=== PATIENT | female | born 1930 | race African-American/Black ===

== ENCOUNTER 2017-11-24 18:29 | Emergency (ER) | payer MEDICARE, OTHER ==
[2017-11-24 19:34] LABS: BASO % 1 % (0-3); EOS # 0.1 x10^3/uL (0.0-0.7); EOS % 1 % (0-3); HEMATOCRIT 30.1 % (36.0-47.0); HEMOGLOBIN 10.2 g/dL (12.0-15.5); LYMPH # 1.4 x10^3/uL (1.0-4.8); LYMPH % 25 % (24-48); MEAN CORPUSCULAR HEMOGLOBIN 29 pg (25-35); MEAN CORPUSCULAR HGB CONC 34 g/dL (31-37); MEAN CORPUSCULAR VOLUME 86 fL (79-100); MONO # 0.6 x10^3/uL (0.0-1.1); MONO % 11 % (0-9); NEUT # 3.4 x10^3uL (1.8-7.7); NEUT % 62 % (31-73); PLATELET COUNT 255 x10^3/uL (140-400); RED CELL DISTRIBUTION WIDTH 18.5 % (11.5-14.5); WHITE BLOOD COUNT 5.5 x10^3/uL (4.0-11.0)
--- NOTE | 2017-11-24 19:41 | ED.ADGEN ---
Past History Past Medical History: Diabetes, Hypertension Past Surgical History: No Surgical History Alcohol Use: None Drug Use: None Adult General Chief Complaint Chief Complaint Hypoglycemia HPI HPI Patient is a 77-year-old -[place] female with history of dementia and non insulin-dependent diabetes who presents with mental status changes and reported hypoglycemia. Patient coronary spends weekdays at [facility] in [place], [place] that provides meals, distributes and checks blood sugar.. 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 She was moving all extremities. No seizure activity was witnessed. Blood sugar was checked which was 40. EMS provided D 10 through an IV. Blood sugar improved to about 100. Mental status returned to baseline.. Patient is also on glimepiride and Coreg. Patient alert and oriented to person and situation on ED arrival. Blood sugar rechecked in about 70. No other acute symptoms or complaints. History limited due to the presence of dementia. Additional history per family. [] Review of Systems Review of Systems ROS as per HPI All other systems were reviewed and found to be within normal limits, except as documented in this note. Allergies Allergies Allergies Coded Allergies Type Severity Reaction Last Updated Verified No Known Drug Allergies 11/24/17 No Physical Exam Physical Exam Constitutional: Well developed, well nourished, no acute distress, non-toxic appearance. [] HENT: Normocephalic, atraumatic, bilateral external ears normal, oropharynx moist, no oral exudates, nose normal. [] Eyes: PERRLA, EOMI, conjunctiva normal, no discharge. [] Neck: Normal range of motion, no tenderness, supple, no stridor. [] Cardiovascular:Heart rate regular rhythm, no murmur [] Lungs & Thorax: Bilateral breath sounds clear to auscultation [] Abdomen: Bowel sounds normal, soft, no tenderness, no masses, no pulsatile masses. [] Skin: Warm, dry, no erythema, no rash. [] Back: No tenderness, no CVA tenderness. [] Extremities: Right orthopaedic shoe [] Neurologic: Alert and oriented X 1, normal motor function, normal sensory function, no focal deficits noted. [] Psychologic: Affect, flat. [] Current Patient Data Vital Signs Vital Signs Date Time Temp Pulse Resp B/P (MAP) Pulse Ox O2 Delivery O2 Flow Rate FiO2 11/24/17 19:37 80 18 135/48 (77) 100 Room Air 11/24/17 18:34 98.1 Lab Results Laboratory Tests Test 11/24/17 19:09 White Blood Count 5.5 x10^3/uL (4.0-11.0) Red Blood Count 3.50 x10^6/uL (3.50-5.40) Hemoglobin 10.2 g/dL (12.0-15.5) L Hematocrit 30.1 % (36.0-47.0) L Mean Corpuscular Volume 86 fL (79-100) Mean Corpuscular Hemoglobin 29 pg (25-35) Mean Corpuscular Hemoglobin Concent 34 g/dL (31-37) Red Cell Distribution Width 18.5 % (11.5-14.5) H Platelet Count 255 x10^3/uL (140-400) Neutrophils (%) (Auto) 62 % (31-73) Lymphocytes (%) (Auto) 25 % (24-48) Monocytes (%) (Auto) 11 % (0-9) H Eosinophils (%) (Auto) 1 % (0-3) Basophils (%) (Auto) 1 % (0-3) Neutrophils # (Auto) 3.4 x10^3uL (1.8-7.7) Lymphocytes # (Auto) 1.4 x10^3/uL (1.0-4.8) Monocytes # (Auto) 0.6 x10^3/uL (0.0-1.1) Eosinophils # (Auto) 0.1 x10^3/uL (0.0-0.7) Basophils # (Auto) 0.0 x10^3/uL (0.0-0.2) Sodium Level 142 mmol/L (136-145) Potassium Level 3.7 mmol/L (3.5-5.1) Chloride Level 106 mmol/L (98-107) Carbon Dioxide Level 27 mmol/L (21-32) Anion Gap 9 (6-14) Blood Urea Nitrogen 25 mg/dL (7-20) H Creatinine 1.4 mg/dL (0.6-1.0) H Estimated GFR (Cockcroft-Gault) 43.0 BUN/Creatinine Ratio 18 (6-20) Glucose Level 65 mg/dL (70-99) L Calcium Level 8.6 mg/dL (8.5-10.1) Total Bilirubin 0.2 mg/dL (0.2-1.0) Aspartate Amino Transferase (AST) 21 U/L (15-37) Alanine Aminotransferase (ALT) 19 U/L (14-59) Alkaline Phosphatase 85 U/L (46-116) Total Protein 6.2 g/dL (6.4-8.2) L Albumin 2.5 g/dL (3.4-5.0) L Albumin/Globulin Ratio 0.7 (1.0-1.7) L EKG EKG [] Radiology/Procedures Radiology/Procedures [] Course & Med Decision Making Course & Med Decision Making Pertinent Labs and Imaging studies reviewed. (See chart for details) [Patient needed on D10 given juice and fed while in the emergency department. Blood sugar remains greater than 100. Patient's able to walk with steady gait with minimal assistance with return to baseline mental status and function. Family members instructed to discontinue glimepiride and check daily blood sugars at home and to ensure patient eats routine snacks meals and follows up with a primary care physician for further management.] Final Impression Final Impression [1 altered mental status state-resolved 2. Hypoglycemia] Problems: Dragon Disclaimer Dragon Disclaimer This electronic medical record was generated, in whole or in part, using a voice recognition dictation system. DEREK ALDRICH DO Nov 24, 2017 19:41
[2017-11-24 19:44] LABS: ALBUMIN 2.5 g/dL (3.4-5.0); ALBUMIN/GLOBULIN RATIO 0.7 (1.0-1.7); CALCIUM 8.6 mg/dL (8.5-10.1); CREATININE 1.4 mg/dL (0.6-1.0); POTASSIUM 3.7 mmol/L (3.5-5.1); TOTAL BILIRUBIN 0.2 mg/dL (0.2-1.0); TOTAL PROTEIN 6.2 g/dL (6.4-8.2)
[2017-11-24 20:26] VITALS: BP 136/70
== END 2017-11-24 20:34 | disposition home or self-care (01) ==
LOC: ER 18:29
DX: E11.649 Type 2 diabetes mellitus with hypoglycemia without coma (principal); I10 Essential (primary) hypertension
CPT/HCPCS: 36415; 80053; 82947; 85025; 99284

== ENCOUNTER 2018-01-02 12:44 | Inpatient (IN) | payer MEDICARE, OTHER ==
[~2018-01-02] VITALS: Ht 152.4 cm; Wt 66.5 kg
[2018-01-02 13:09] LABS: BASO # 0.1 x10^3/uL (0.0-0.2); BASO % 1 % (0-3); EOS # 0.1 x10^3/uL (0.0-0.7); EOS % 1 % (0-3); HEMATOCRIT 34.7 % (36.0-47.0); HEMOGLOBIN 11.1 g/dL (12.0-15.5); LYMPH # 1.1 x10^3/uL (1.0-4.8); LYMPH % 16 % (24-48); MEAN CORPUSCULAR HEMOGLOBIN 29 pg (25-35); MEAN CORPUSCULAR HGB CONC 32 g/dL (31-37); MEAN CORPUSCULAR VOLUME 89 fL (79-100); MONO # 0.6 x10^3/uL (0.0-1.1); MONO % 8 % (0-9); NEUT # 5.1 x10^3uL (1.8-7.7); NEUT % 74 % (31-73); PLATELET COUNT 178 x10^3/uL (140-400); RED BLOOD COUNT 3.89 x10^6/uL (3.50-5.40); RED CELL DISTRIBUTION WIDTH 18.4 % (11.5-14.5); WHITE BLOOD COUNT 6.8 x10^3/uL (4.0-11.0)
--- NOTE | 2018-01-02 13:18 | EKG ---
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
[2018-01-02 13:24] LABS: BACTERIA,URINE 0 /HPF (0-FEW); BILIRUBIN,URINE NEG (NEG); CLARITY,URINE HAZY; COLOR,URINE YELLOW; GLUCOSE,URINE 250 mg/dL (NEG); NITRITE,URINE NEG (NEG); SQUAMOUS EPITHELIAL CELL,UR FEW /LPF; UROBILINOGEN,URINE 0.2 mg/dL (0.2 mg/dL); WBC,URINE OCC /HPF (0-4)
[2018-01-02 13:24] LABS: ALBUMIN/GLOBULIN RATIO 0.9 (1.0-1.7); CALCIUM 9.3 mg/dL (8.5-10.1); CREATININE 1.7 mg/dL (0.6-1.0); GFR 34.4; POTASSIUM 4.4 mmol/L (3.5-5.1); TOTAL BILIRUBIN 0.5 mg/dL (0.2-1.0); TOTAL PROTEIN 6.2 g/dL (6.4-8.2)
--- NOTE | 2018-01-02 13:39 | RAD ---
EXAM: CT head without contrast. HISTORY: Altered level of consciousness. TECHNIQUE: Computed tomography of the head was performed without intravenous contrast. COMPARISON: None. FINDINGS: There is no intracranial hemorrhage. There is a chronic infarct in the right occipital lobe. There is moderate to severe chronic small vessel ischemic white matter change elsewhere. The lateral ventricles are moderately enlarged out of proportion to the degree of sulcal enlargement. The visualized paranasal sinuses appear clear. There are changes of bilateral cataract surgery. The temporal bones are unremarkable. The calvarium reveals no suspicious lesions. There are atherosclerotic calcifications of the internal carotid arteries. IMPRESSION: 1. No acute intracranial findings. 2. Chronic right occipital infarct. 3. Prominence of the lateral ventricles is somewhat out of portion to the degree of sulcal enlargement. Correlate clinically to differentiate moderate atrophy from normal pressure hydrocephalus. 4. Moderate to severe chronic small vessel ischemic white matter change. *One or more of the following individualized dose reduction techniques were utilized for this examination: 1. Automated exposure control. 2. Adjustment of the mA and/or kV according to patient size. 3. Use of iterative reconstruction technique.
--- NOTE | 2018-01-02 13:42 | RAD ---
EXAM: Chest one view. HISTORY: Altered level of consciousness. COMPARISON: None. FINDINGS: A frontal view of the chest is obtained. A left-sided pacemaker has its leads in the right atrium and right ventricle. An opacity in the right cardiophrenic angle is consistent with atelectasis or mild infiltrate. There is mild atelectasis in the left base. There is no pneumothorax or pleural effusion. The heart is not enlarged. There are atherosclerotic calcifications of the aorta. IMPRESSION: 1. Right greater than left basilar atelectasis or mild infiltrate.
[2018-01-02] MEDS ORDERED: POLY2500 MC (13:43)
[2018-01-02] MEDS ORDERED: LOSA100T6 PO (13:43)
[2018-01-02] MEDS ORDERED: ASPI325T8 PO (13:44)
[2018-01-02] MEDS ORDERED: CARV40CP PO (13:45)
[2018-01-02] MEDS ORDERED: ERGO500027 PO (13:46)
[2018-01-02] MEDS ORDERED: FURO20TA3 PO (13:47)
[2018-01-02] MEDS ORDERED: GLIM2TAB2 PO (13:52)
[2018-01-02] MEDS: ASPIRIN 81 MG TAB.CHEW PO ONE ×2 (14:10→15:28)
--- NOTE | 2018-01-02 14:13 | PHYS DOC ---
Past History Past Medical History: Dementia, Diabetes, Hypertension Past Surgical History: Pacemaker Smoking: Non-smoker Alcohol Use: None Drug Use: None Adult General Chief Complaint Chief Complaint: ALTERED MENTAL STATUS HPI HPI 87-year-old female patient with history of diabetes and dementia who lives with family members brought in by EMS because of altered mental status. Patient's family state he returned from religious and was on a chair and suddenly she became unresponsive with bending her head over and having shortness of breath and not responding for a short time at 1220 that was about 20 minutes prior to arrival to ER. She was able to talk and did not have focal neuro deficit according to EMS. Review of Systems Review of Systems unable to obtain because of dementia Current Medications Current Medications Current Medications Medications (Trade) Dose Ordered Sig/Clarence Start Time Stop Time Status Last Admin Dose Admin Aspirin (Children'S Aspirin) 324 mg 1X ONCE 01/02/18 14:10 01/02/18 14:11 Allergies Allergies Allergies Coded Allergies Type Severity Reaction Last Updated Verified No Known Drug Allergies 11/24/17 No Physical Exam Physical Exam Constitutional: Well nourished, mild distress, non-toxic appearance. [] HENT: Normocephalic, atraumatic, bilateral external ears normal, oropharynx moist, no oral exudates, nose normal. [] Eyes: PERRLA, EOMI, conjunctiva normal, no discharge. [] Neck: Normal range of motion, no tenderness, supple, no stridor. [] Cardiovascular:Heart rate regular rhythm, no murmur [] Lungs & Thorax: Bilateral breath sounds clear to auscultation [] Abdomen: Bowel sounds normal, soft, no tenderness, no masses, no pulsatile masses. [] Skin: Warm, dry, no erythema, no rash. [] Back: No tenderness, no CVA tenderness. [] Extremities: No tenderness, no cyanosis, no clubbing, ROM intact, bilateral lower extremity 1+ edema] Neurologic: Alert and oriented X 2, normal motor function, normal sensory function, no focal deficits noted. [] Psychologic: Affect normal Current Patient Data Vital Signs Vital Signs Date Time Temp Pulse Resp B/P (MAP) Pulse Ox O2 Delivery O2 Flow Rate FiO2 01/02/18 13:30 78 16 161/91 (114) 100 Room Air 01/02/18 13:01 97.9 Lab Results Laboratory Tests Test 01/02/18 12:49 4/15/18 12:54 01/02/18 12:56 White Blood Count 6.8 x10^3/uL (4.0-11.0) Red Blood Count 3.89 x10^6/uL (3.50-5.40) Hemoglobin 11.1 g/dL (12.0-15.5) L Hematocrit 34.7 % (36.0-47.0) L Mean Corpuscular Volume 89 fL (79-100) Mean Corpuscular Hemoglobin 29 pg (25-35) Mean Corpuscular Hemoglobin Concent 32 g/dL (31-37) Red Cell Distribution Width 18.4 % (11.5-14.5) H Platelet Count 178 x10^3/uL (140-400) Neutrophils (%) (Auto) 74 % (31-73) H Lymphocytes (%) (Auto) 16 % (24-48) L Monocytes (%) (Auto) 8 % (0-9) Eosinophils (%) (Auto) 1 % (0-3) Basophils (%) (Auto) 1 % (0-3) Neutrophils # (Auto) 5.1 x10^3uL (1.8-7.7) Lymphocytes # (Auto) 1.1 x10^3/uL (1.0-4.8) Monocytes # (Auto) 0.6 x10^3/uL (0.0-1.1) Eosinophils # (Auto) 0.1 x10^3/uL (0.0-0.7) Basophils # (Auto) 0.1 x10^3/uL (0.0-0.2) Prothrombin Time 12.6 SEC (9.4-11.4) H Prothrombin Time INR 1.2 (0.9-1.1) H Sodium Level 145 mmol/L (136-145) Potassium Level 4.4 mmol/L (3.5-5.1) Chloride Level 106 mmol/L (98-107) Carbon Dioxide Level 28 mmol/L (21-32) Anion Gap 11 (6-14) Blood Urea Nitrogen 34 mg/dL (7-20) H Creatinine 1.7 mg/dL (0.6-1.0) H Estimated GFR (Cockcroft-Gault) 34.4 BUN/Creatinine Ratio 20 (6-20) Glucose Level 329 mg/dL (70-99) H Lactic Acid Level 3.2 mmol/L (0.4-2.0) H Calcium Level 9.3 mg/dL (8.5-10.1) Total Bilirubin 0.5 mg/dL (0.2-1.0) Aspartate Amino Transferase (AST) 25 U/L (15-37) Alanine Aminotransferase (ALT) 27 U/L (14-59) Alkaline Phosphatase 92 U/L (46-116) Creatine Kinase 91 U/L (26-192) Creatine Kinase MB (Mass) 2.6 ng/mL (0.0-3.6) Creatine Kinase MB Relative Index 2.9 % (0-4) Troponin I Quantitative 0.191 ng/mL (0-0.055) H Total Protein 6.2 g/dL (6.4-8.2) L Albumin 3.0 g/dL (3.4-5.0) L Albumin/Globulin Ratio 0.9 (1.0-1.7) L Urine Collection Type U cath Urine Color Yellow Urine Clarity Hazy Urine pH 6.5 Urine Specific Schuyler 1.020 Urine Protein 100 mg/dl (NEG-TRACE) Urine Glucose (UA) 250 mg/dL (NEG) Urine Ketones (Stick) Neg mg/dL (NEG) Urine Blood Small (NEG) Urine Nitrite Neg (NEG) Urine Bilirubin Neg (NEG) Urine Urobilinogen Dipstick 0.2 mg/dL (0.2 mg/dL) Urine Leukocyte Esterase Neg (NEG) Urine RBC 3-5 /HPF (0-2) Urine WBC Occ /HPF (0-4) Urine Squamous Epithelial Cells Few /LPF Urine Bacteria 0 /HPF (0-FEW) Glucose (Fingerstick) 287 mg/dL (70-99) H EKG EKG EKG interpreted by me. EKG at 1305 showed normal sinus rhythm at rate of 81, abnormal left axis deviation, nonspecific intraventricular block, no acute distress and T-wave abnormalities[] Radiology/Procedures Radiology/Procedures [] [address] [address] IMAGING REPORT Signed PATIENT: ILEANA MERRILL ACCOUNT: [id number] : 1930 LOCATION: ER AGE: 87 SEX: F EXAM STATUS: REG ER ORD. PHYSICIAN: RAINE ROMEO MD REASON: ALOC PROCEDURE: CHEST AP ONLY EXAM: Chest one view. HISTORY: Altered level of consciousness. COMPARISON: None. FINDINGS: A frontal view of the chest is obtained. A left-sided pacemaker has its leads in the right atrium and right ventricle. An opacity in the right cardiophrenic angle is consistent with atelectasis or mild infiltrate. There is mild atelectasis in the left base. There is no pneumothorax or pleural effusion. The heart is not enlarged. There are atherosclerotic calcifications of the aorta. IMPRESSION: 1. Right greater than left basilar atelectasis or mild infiltrate. DICTATED AND SIGNED BY: PILLO BARRETT MD DATE: 01/02/181336 CC: RAINE ROMEO MD; NON,STAFF ~ [place] [address] IMAGING REPORT Signed PATIENT: ILEANA MERRILL ACCOUNT: [id number] : 1930 LOCATION: ER AGE: 87 SEX: F EXAM STATUS: REG ER ORD. PHYSICIAN: RAINE ROMEO MD REASON: ALOC PROCEDURE: CT HEAD WO CONTRAST EXAM: CT head without contrast. HISTORY: Altered level of consciousness. TECHNIQUE: Computed tomography of the head was performed without intravenous contrast. COMPARISON: None. FINDINGS: There is no intracranial hemorrhage. There is a chronic infarct in the right occipital lobe. There is moderate to severe chronic small vessel ischemic white matter change elsewhere. The lateral ventricles are moderately enlarged out of proportion to the degree of sulcal enlargement. The visualized paranasal sinuses appear clear. There are changes of bilateral cataract surgery. The temporal bones are unremarkable. The calvarium reveals no suspicious lesions. There are atherosclerotic calcifications of the internal carotid arteries. IMPRESSION: 1. No acute intracranial findings. 2. Chronic right occipital infarct. 3. Prominence of the lateral ventricles is somewhat out of portion to the degree of sulcal enlargement. Correlate clinically to differentiate moderate atrophy from normal pressure hydrocephalus. 4. Moderate to severe chronic small vessel ischemic white matter change. *One or more of the following individualized dose reduction techniques were utilized for this examination: 1. Automated exposure control. 2. Adjustment of the mA and/or kV according to patient size. 3. Use of iterative reconstruction technique. DICTATED AND SIGNED BY: PILLO BARRETT MD DATE: 01/02/18 1320 CC: RAINE ROMEO MD; NON,STAFF ~ Course & Med Decision Making Course & Med Decision Making Pertinent Labs and Imaging studies reviewed. (See chart for details) Evaluation of patient in ER showed 87-year-old female patient brought in by EMS because of left. Mental status for a short time. Patient had NISS of [address] head. Lactic acid was 3.4 with unremarkable UA and white count. Patient did not have hypotension, fever, tachycardia or leukocytosis. X-ray was questionable for infiltrate. Troponin was very mildly elevated. Patient treated with aspirin and Rocephin. Dr. Santos was informed at 1337 agreed with admitting patient with diagnosis of altered mental status and elevated troponin. Dragon Disclaimer Dragon Disclaimer This electronic medical record was generated, in whole or in part, using a voice recognition dictation system. Departure Departure: Impression: Primary Impression: Altered level of consciousness Additional Impressions: Elevated troponin Elevated lactic acid level Dementia Microscopic hematuria Uncontrolled diabetes mellitus Pneumonia Disposition: 09 ADMITTED INPATIENT (At 1338) Condition: IMPROVED Referrals: NON,STAFF (PCP) Problem Qualifiers RAINE ROMEO MD Jan 02, 2018 14:13
[2018-01-02] MEDS ORDERED: IV NORMAL SALINE 1,000ML 1,000 ML IV ONE (14:15)
[2018-01-02] MEDS ORDERED: cefTRIAXone IV Push 1 GM VIAL. IVP ONE (14:30)
[2018-01-02] MEDS ORDERED: CARVEDILOL 12.5 MG TABLET PO SCH (17:00)
[2018-01-02] MEDS ORDERED: DEXTROSE 50% 25 GM / 50ML DISP.SYRIN. IV PRN (17:15)
--- NOTE | 2018-01-02 19:07 | HP ---
ADMIT DATE: 01/02/2018 HISTORY OF PRESENT ILLNESS: The patient is an 87-year-old female patient with a past medical history significant for diabetes and dementia, who lives with her family, who brought her to the Emergency Room with altered mental status. Her family stated that she has returned from zoroastrianism, was in the chair and suddenly she became unresponsive with bending her head over and having shortness of breath and not responding for a short time for almost about 20 minutes prior to arrival to the Emergency Room; however, by the time she arrived to the Emergency Room, she was able to talk, have no focal neurologic deficit. She was extensively evaluated in the Emergency Room, and her lab work showed that she has impaired kidney function, has lactic acidosis, and her troponin was elevated at 0.191. Her beta natriuretic peptide was 7560, and therefore, the patient was admitted to rule out myocardial infarction. We do 2 more sets of cardiac enzymes, get the Cardiology consult to see her. She continues to be full code, according to her family. PAST MEDICAL HISTORY: Significant for type 2 diabetes mellitus, hypertension, vitamin D deficiency. PAST SURGICAL HISTORY: Significant for permanent pacemaker placement. FAMILY HISTORY: Noncontributory. SOCIAL HISTORY: She lives with her family, does not smoke, drink alcohol or use recreational drugs. ALLERGIES: She has no known drug allergies. MEDICATIONS: She is currently on following medications: Carvedilol 40 mg once a day, losartan potassium 100 mg once a day, aspirin 325 mg once a day, furosemide 20 mg once a day, glimepiride 2 mg daily, ergocalciferol, vitamin D2 at 50,000 international units 1 capsule once a week, polyethylene glycol 17 grams daily. PHYSICAL EXAMINATION: GENERAL: On examining her, she looked well and was clearly in no apparent respiratory distress, slightly pale, but no jaundice or cyanosis. No lymphadenopathy, no thyromegaly. No jugular venous distension. No lower limb edema. VITAL SIGNS: Her heart rate was 76, blood pressure 161/91, temperature was 97.9, respiratory rate was 16 and oxygen saturation was 100% on room air. HEAD, EYES, EARS, NOSE AND THROAT: Showed normocephalic, atraumatic. NECK: Supple. HEART: Showed normal first and second heart sounds. No gallop, rub or murmur. CHEST: Clear to auscultation. No crepitation or rhonchi. ABDOMEN: Distended, soft, nontender. No guarding or rigidity. No organomegaly. All hernial orifices intact. Bowel sounds normal. NEUROLOGIC: She was demented without any obvious lateralizing sign. She is very confused, disoriented, does not give any useful information; however, all her cranial nerves are intact. EXTREMITIES: She moves all extremities without difficulty. DIAGNOSTIC STUDIES: On arrival to the Emergency Room, she has lab work done showed a serum sodium of 145, potassium 4.4, chloride 106, bicarbonate 28, anion gap of 11, BUN 34, creatinine 1.7, estimated GFR was 54 mL per minute. Her glucose was 329, calcium was 9.3. Lactic acid was 3.2. Total bilirubin, AST, ALT, alkaline phosphatase were normal. Her troponin was 0.191. Total protein was 6.2, albumin 3. Her white cell count was 6800, hemoglobin 11, hematocrit 34, MCV 89 and platelet count of 178,000. Prothrombin time was 12.6, INR of 1.2. Urinalysis was essentially unremarkable. The urine was yellow, hazy with a pH of 6.5, specific gravity of 1.020. There is large amount of protein, large amount of glucose, negative for ketones, there is small amount of blood, negative for nitrite and leukocyte esterase, only 3-4 rbc's, occasional wbc's, no bacteria. Her CT scan of the head showed that there is no acute intracranial finding, chronic right occipital infarct. She has prominence of the lateral ventricle, is somewhat out of proportion to the degree of sulcal enlargement with the possibility of either atrophy from normal pressure hydrocephalus, moderate to severe chronic small vessel disease, ischemic white matter changes. PLAN: My plan is to do 2 more sets of cardiac enzyme, check her fasting lipid profile tomorrow. Consult the cardiology team, although given her age and comorbidities, I am not sure if she is a candidate for any intervention. SERGE HORNE MD DR: TAYLOR/ugo JOB#: [id number] / [id number]
[2018-01-02 19:43] VITALS: BP 157/90
[2018-01-02] MEDS: INSULIN ASPART 300 UNITS/3 ML INSULN.PEN SQ SCH (19:54)
[2018-01-02 22:27] VITALS: BP 151/83
[2018-01-03 05:51] VITALS: BP 153/76
[2018-01-03 06:44] LABS: HEMATOCRIT 31.3 % (36.0-47.0); HEMOGLOBIN 10.4 g/dL (12.0-15.5); RED BLOOD COUNT 3.58 x10^6/uL (3.50-5.40); RED CELL DISTRIBUTION WIDTH 18.4 % (11.5-14.5)
[2018-01-03 07:04] LABS: ALBUMIN 2.8 g/dL (3.4-5.0); ALBUMIN/GLOBULIN RATIO 0.8 (1.0-1.7); CALCIUM 9.2 mg/dL (8.5-10.1); CREATININE 1.6 mg/dL (0.6-1.0); GFR 36.9; POTASSIUM 3.7 mmol/L (3.5-5.1); TOTAL BILIRUBIN 0.5 mg/dL (0.2-1.0); TOTAL PROTEIN 6.1 g/dL (6.4-8.2)
[2018-01-03] MEDS: INSULIN ASPART 300 UNITS/3 ML INSULN.PEN SQ SCH ×4 (07:13→20:31)
[2018-01-03] MEDS: FUROSEMIDE 20 MG TABLET PO SCH (08:38)
[2018-01-03] MEDS: POLYETHYLENE GLYCOL 3350 17 GM PACKET. PO SCH (08:38)
[2018-01-03] MEDS: LOSARTAN 50 MG TABLET. PO SCH (08:38)
[2018-01-03] MEDS: ASPIRIN 325 MG TABLET PO SCH (08:39)
[2018-01-03] MEDS: GLIMEPIRIDE 2 MG TABLET PO SCH (08:39)
[2018-01-03] MEDS ORDERED: CARVEDILOL 12.5 MG TABLET PO SCH (09:00)
[2018-01-03 10:10] VITALS: BP 166/92
--- NOTE | 2018-01-03 10:17 | PDOC2 ---
CARDIAC CONSULT DATE OF CONSULT Date Of Consult DATE: 01/03/18 TIME: 10:01 REASON FOR CONSULT Reason for Consult syncope HPI History of Present Illness Ms Campa is an 87 year old female with baseline dementia who was transported to the ED via EMS for a reported syncopal episode. She denies any memory of the episode. She is able to tell me her name but currently states that we are at her grandsons house and the year is 2017. She states that she still goes to orthodox and grocery shopping but is unable to tell me where her grandsons home is located. She denies any lightheadedness, chest discomfort, dyspnea or palpitations. She reports that her legs are frequently swollen. History if obtained from the chart. PAST MEDICAL HISTORY Past Medical History CAD, CHF, systolic EF of 45 status post pacemaker placement, dementia, hypertension, diabetes mellitus and hypothyroidism. 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 Right PT and peroneal occlusion Right mid and distal AT occlusion Collateral reconstitution of flow in the right DP FAMILY HISTORY Family History non contributory due to age SOCIAL HISTORY Social History lives with grandson and his family CURRENT MEDICATIONS Current Medications Current Medications Aspirin (Children'S Aspirin) 324 mg 1X ONCE PO ; Start 01/02/18 at 14:10; Stop 01/02/18 at 14:11; Status DC Ceftriaxone Sodium 1 gm/ Sodium Chloride 50 ml @ 100 mls/hr 1X ONCE IV ; Start 01/02/18 at 14:15; Stop 01/02/18 at 14:44; Status UNV Sodium Chloride 1,000 ml @ 75 mls/hr 1X ONCE IV Last administered on at 15:27; Start 01/02/18 at 14:15; Stop 01/03/18 at 03:34; Status DC Ceftriaxone Sodium (Rocephin) 1 gm 1X ONCE IVP Last administered on 01/02/18at 15:28; Start 01/02/18 at 14:30; Stop 01/02/18 at 14:31; Status DC Aspirin (Brooks Aspirin) 325 mg DAILY PO Last administered on 01/03/18at 08:39; Start 01/03/18 at 09:00 Furosemide (Lasix) 20 mg DAILY PO Last administered on 01/03/18at 08:38; Start 01/03/18 at 09:00 Glimepiride (Amaryl) 2 mg DAILY PO Last administered on 01/03/18at 08:39; Start 01/03/18 at 09:00 Carvedilol (Coreg) 12.5 mg BIDWMEALS PO ; Start 01/02/18 at 17:00; Stop at 17:22; Status DC Vitamin D (Vitamin D3) 50,000 unit WEEKLY PO ; Start 01/04/18 at 09:00 Losartan Potassium (Cozaar) 100 mg DAILY PO Last administered on 01/03/18at 08: 38; Start 01/03/18 at 09:00 Polyethylene Glycol (miraLAX) 17 gm DAILY PO Last administered on 01/03/18at 08: 38; Start 01/03/18 at 09:00 Insulin Aspart (NovoLOG) 0-7 UNITS QIDACHS SQ Last administered on 01/02/18at 19 :54; Start 01/02/18 at 21:00 Dextrose 12.5 gm PRN Q15MIN PRN IV SEE COMMENTS; Start 01/02/18 at 17:15 Carvedilol (Coreg) 12.5 mg DAILY PO ; Start 01/03/18 at 09:00; Status UNV Carvedilol (Coreg) 12.5 mg BIDWMEALS PO ; Start 01/03/18 at 17:00 Active Scripts Active Reported Glimepiride 2 Mg Tablet 1 Tab PO DAILY Furosemide 20 Mg Tablet 1 Tab PO DAILY Coreg Cr (Carvedilol Phosphate) 40 Mg Cpmp.24hr 1 Cap PO DAILY Aspirin 325 Mg Tablet 1 Tab PO DAILY Polyethylene Glycol 3350 2,500 Gm Powder 2,500 Gm MC Losartan Potassium 100 Mg Tablet 100 Mg PO DAILY ALLERGIES Allergies: Coded Allergies: No Known Drug Allergies (Unverified , 11/24/17) ROS Review of Systems unobtainable due to dementia PHYSICAL EXAM General: Alert, Cooperative, No acute distress, Other (oriented to self) HEENT: Atraumatic, EOMI, Mucous membr. moist/pink Lungs: Clear to auscultation, Normal air movement Heart: Regular rate, Normal S1, Normal S2 Abdomen: Normal bowel sounds, Soft, No tenderness Extremities: No cyanosis, Other (2+ bilateral lower extremity edema) Neuro: Normal speech, Strength at 5/5 X4 ext Psych/Mental Status: Mood NL, Other (oriented to self) VITALS Vital Signs Vital Signs Date Time Temp Pulse Resp B/P (MAP) Pulse Ox O2 Delivery O2 Flow Rate FiO2 01/03/18 08:38 88 153/76 01/03/18 05:51 98.1 16 91 Room Air LABS LABS Laboratory Tests Test 01/02/18 12:49 01/02/18 12:54 01/02/18 12:56 01/02/18 16:15 White Blood Count 6.8 x10^3/uL (4.0-11.0) Red Blood Count 3.89 x10^6/uL (3.50-5.40) Hemoglobin 11.1 g/dL (12.0-15.5) Hematocrit 34.7 % (36.0-47.0) Mean Corpuscular Volume 89 fL (79-100) Mean Corpuscular Hemoglobin 29 pg (25-35) Mean Corpuscular Hemoglobin Concent 32 g/dL (31-37) Red Cell Distribution Width 18.4 % (11.5-14.5) Platelet Count 178 x10^3/uL (140-400) Neutrophils (%) (Auto) 74 % (31-73) Lymphocytes (%) (Auto) 16 % (24-48) Monocytes (%) (Auto) 8 % (0-9) Eosinophils (%) (Auto) 1 % (0-3) Basophils (%) (Auto) 1 % (0-3) Neutrophils # (Auto) 5.1 x10^3uL (1.8-7.7) Lymphocytes # (Auto) 1.1 x10^3/uL (1.0-4.8) Monocytes # (Auto) 0.6 x10^3/uL (0.0-1.1) Eosinophils # (Auto) 0.1 x10^3/uL (0.0-0.7) Basophils # (Auto) 0.1 x10^3/uL (0.0-0.2) Prothrombin Time 12.6 SEC (9.4-11.4) Prothromb Time International Ratio 1.2 (0.9-1.1) Sodium Level 145 mmol/L (136-145) Potassium Level 4.4 mmol/L (3.5-5.1) Chloride Level 106 mmol/L (98-107) Carbon Dioxide Level 28 mmol/L (21-32) Anion Gap 11 (6-14) Blood Urea Nitrogen 34 mg/dL (7-20) Creatinine 1.7 mg/dL (0.6-1.0) Estimated GFR (Cockcroft-Gault) 34.4 BUN/Creatinine Ratio 20 (6-20) Glucose Level 329 mg/dL (70-99) Lactic Acid Level 3.2 mmol/L (0.4-2.0) 2.4 mmol/L (0.4-2.0) Calcium Level 9.3 mg/dL (8.5-10.1) Total Bilirubin 0.5 mg/dL (0.2-1.0) Aspartate Amino Transf (AST/SGOT) 25 U/L (15-37) Alanine Aminotransferase (ALT/SGPT) 27 U/L (14-59) Alkaline Phosphatase 92 U/L (46-116) Creatine Kinase 91 U/L (26-192) Creatine Kinase MB (Mass) 2.6 ng/mL (0.0-3.6) Creatine Kinase MB Relative Index 2.9 % (0-4) Troponin I Quantitative 0.191 ng/mL (0-0.055) 0.226 ng/mL (0-0.055) ID-Vfw-K-Type Natriuretic Peptide 7560 pg/mL (0-449) Total Protein 6.2 g/dL (6.4-8.2) Albumin 3.0 g/dL (3.4-5.0) Albumin/Globulin Ratio 0.9 (1.0-1.7) Urine Collection Type U cath Urine Color Yellow Urine Clarity Hazy Urine pH 6.5 Urine Specific [place] 1.020 Urine Protein 100 mg/dl (NEG-TRACE) Urine Glucose (UA) 250 mg/dL (NEG) Urine Ketones (Stick) Neg mg/dL (NEG) Urine Blood Small (NEG) Urine Nitrite Neg (NEG) Urine Bilirubin Neg (NEG) Urine Urobilinogen Dipstick 0.2 mg/dL (0.2 mg/dL) Urine Leukocyte Esterase Neg (NEG) Urine RBC 3-5 /HPF (0-2) Urine WBC Occ /HPF (0-4) Urine Squamous Epithelial Cells Few /LPF Urine Bacteria 0 /HPF (0-FEW) Glucose (Fingerstick) 287 mg/dL (70-99) Test 01/02/18 17:09 01/02/18 19:52 01/02/18 20:30 01/03/18 06:29 Glucose (Fingerstick) 282 mg/dL (70-99) 277 mg/dL (70-99) Troponin I Quantitative 0.228 ng/mL (0-0.055) White Blood Count 5.0 x10^3/uL (4.0-11.0) Red Blood Count 3.58 x10^6/uL (3.50-5.40) Hemoglobin 10.4 g/dL (12.0-15.5) Hematocrit 31.3 % (36.0-47.0) Mean Corpuscular Volume 87 fL (79-100) Mean Corpuscular Hemoglobin 29 pg (25-35) Mean Corpuscular Hemoglobin Concent 33 g/dL (31-37) Red Cell Distribution Width 18.4 % (11.5-14.5) Platelet Count 151 x10^3/uL (140-400) Sodium Level 146 mmol/L (136-145) Potassium Level 3.7 mmol/L (3.5-5.1) Chloride Level 109 mmol/L (98-107) Carbon Dioxide Level 27 mmol/L (21-32) Anion Gap 10 (6-14) Blood Urea Nitrogen 33 mg/dL (7-20) Creatinine 1.6 mg/dL (0.6-1.0) Estimated GFR (Cockcroft-Gault) 36.9 BUN/Creatinine Ratio 21 (6-20) Glucose Level 124 mg/dL (70-99) Calcium Level 9.2 mg/dL (8.5-10.1) Magnesium Level 2.0 mg/dL (1.8-2.4) Total Bilirubin 0.5 mg/dL (0.2-1.0) Aspartate Amino Transf (AST/SGOT) 21 U/L (15-37) Alanine Aminotransferase (ALT/SGPT) 25 U/L (14-59) Alkaline Phosphatase 79 U/L (46-116) Total Protein 6.1 g/dL (6.4-8.2) Albumin 2.8 g/dL (3.4-5.0) Albumin/Globulin Ratio 0.8 (1.0-1.7) Test 01/03/18 07:11 Glucose (Fingerstick) 112 mg/dL (70-99) IMAGES IMAGES CXR - 1. Right greater than left basilar atelectasis or mild infiltrate. CT head - IMPRESSION: 1. No acute intracranial findings. 2. Chronic right occipital infarct. 3. Prominence of the lateral ventricles is somewhat out of portion to the degree of sulcal enlargement. Correlate clinically to differentiate moderate atrophy from normal pressure hydrocephalus. 4. Moderate to severe chronic small vessel ischemic white matter change. EKG EKG V paced ECHOCARDIOGRAM Echocardiogram 06/02/17 Left ventricle systolic function is mildly impaired. The Ejection Fraction is 45%. Transmitral Doppler flow pattern is Grade I-abnormal relaxation pattern. There is moderate concentric left ventricular hypertrophy. The left atrium is mildly dilated. The right atrium size is normal. The aortic valve is mildly sclerotic. The aortic valve is trileaflet. Doppler and Color Flow revealed trace aortic regurgitation. Doppler and Color Flow revealed mild mitral regurgitation. The mitral valve leaflets are mildly thickened. Doppler and Color Flow revealed mild tricuspid regurgitation. The pulmonary artery systolic pressure is estimated at 57 mmHg. There is moderate pulmonary hypertension. The pulmonary valve is not well visualized but appears to open adequately. Doppler and Color Flow revealed mild pulmonic valvular regurgitation. There is no evidence of significant pericardial effusion. ASSESSMENT/PLAN Assessment/Plan 1. Syncope - will attempt to obtain records and have pacemaker interrogated. Check orthostatics. 2. NSTEMI - angina free. continue medical mgmt at this time. 3. Hx chronic systolic hf - appears compensated at this time 4. PAD - recent thrombectomy 5. 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 dementia Recent echo reviewed. Will attempt to have pacemaker interrogated for any possible arrhythmias. Check echo and adjust antihypertensives accordingly. Would recommend medical mgmt considering her age and mental status, at this time. HI SILVERIO BRIDGE WORKER Jan 03, 2018 10:17
[2018-01-03 15:23] VITALS: BP_SYST 148; BP_SYST 165; BP_DIAS 82; BP_DIAS 99
[2018-01-03 15:24] VITALS: BP 156/78
[2018-01-03] MEDS: CARVEDILOL 12.5 MG TABLET PO SCH (17:16)
--- NOTE | 2018-01-03 19:02 | CONS ---
DATE OF CONSULTATION: 01/02/2018 REFERRING PHYSICIAN: Dr. Santos. REASON FOR CONSULTATION: Acute mental status changes. HISTORY OF PRESENT ILLNESS: This is an 87-year-old right-handed, -[place] female who was admitted through Emergency Room approximately 20 minutes after she had a brief loss of consciousness at the [facility] this noon this afternoon. The family members stated that the patient was tired and had a brief unresponsiveness along with shortness of breath. The patient did not recall the event; however, she denies headaches, visual disturbances, nausea, vomiting, chest pain, or palpitations. The patient denies any new onset of weakness or paresthesia. Initial nonenhanced head CT scan revealed no evidence of acute intracranial process, but chronic right occipital infarct and generalized cortical atrophy, raised a question of normal pressure hydrocephalus along with moderate to severe chronic small vessel ischemic changes. PAST MEDICAL HISTORY: Significant for diabetes mellitus type 2, hypertension, vitamin D deficiency, dementia, congestive heart failure, and deep venous thrombosis. PAST SURGICAL HISTORY: Significant for permanent pacemaker placement. SOCIAL HISTORY: The patient is with her son-in-law. She denies smoking, alcohol drinking, or illicit drug use. CURRENT HOME MEDICATIONS: Vitamin D3 50 units weekly, carvedilol 12.5 mg p.o. b.i.d., MiraLax, Cozaar 100 mg p.o. daily, Amaryl 2 mg p.o. daily, furosemide 20 mg daily, aspirin 325 mg p.o. daily, insulin NovoLog 0 to 7 units q.i.d. FAMILY HISTORY: Noncontributory. REVIEW OF SYSTEMS: A 10-point review of system was performed and consistent with generalized fatigue, exertional shortness of breath. PHYSICAL EXAMINATION: GENERAL: Well-developed, well nourished -[place] female, not in acute distress. She weighs 145 pounds. VITAL SIGNS: Blood pressure 157/90, respiratory rate 18, pulse is 81, temperature is 98.3, oxygen saturation 100% on room air. HEENT: Normocephalic, atraumatic, otherwise unremarkable. NECK: Supple. Negative for carotid bruit, lymphadenopathy, thyromegaly, or lymphadenopathy. LUNGS: Clear, but has basilar rales. CARDIOVASCULAR: Regular rhythm, normal S1, S2. There is no S3, S4 or murmur. ABDOMEN: Soft. Bowel sounds positive. Negative for masses, organomegaly or tenderness. EXTREMITIES: Positive for 1-2+ pitting edema. NEUROLOGIC: Mental status: The patient is alert and disoriented to time and place. She can name the President of [employer]. Speech is fluent. There is no language dysfunction. Memory, judgment, and abstract thinking are poor. The patient is fair. The patient denies hallucination or delusion. CRANIAL NERVES: Visual [place]itting[place] consistent with left homonymous hemianopsia. Pupils are equal and reactive to light and accommodation. The extraocular movements are intact. There is no nystagmus. There is no facial, motor or sensory deficit. Hearing to be intact. The palate is elevated symmetrically. Sternocleidomastoid muscles are powerful bilaterally. The patient shrugs her shoulders symmetrically and protrudes her tongue in the midline without fasciculation or atrophy. MOTOR: No focal muscle bulk was seen. The tone is normal. The strength is 4/5 throughout. Sensory examination revealed normal pinprick and light touch senses throughout. Deep tendon reflexes were symmetric and hypoactive without pathology responses. Gait: The stance steady gait, but patient has abnormal tandem gait. LABORATORY DATA: CBC revealed white blood cells of 6800, hemoglobin 11.1, hematocrit 34.7, platelet count 178,000. Chemistry revealed sodium 145, potassium 4.4, chloride 106, CO2 28, BUN 34, creatinine 1.7, glucose 329, calcium 9.3. Troponin level is high at 0.226. BNP is high as 7560. Urinalysis is negative for urinary tract infections, PT is 12.6, INR is 1.2. DIAGNOSTIC DATA: Head CT scan as mentioned above in history of present illness and consistent with chronic right occipital infarct along with chronic small vessel ischemic changes and cortical atrophy with ventriculomegaly consistent with possible underlying normal pressure hydrocephalus. A chest x-ray revealed basilar atelectasis or mild infiltrate, more prominent on the right side. IMPRESSION: 1. Mental status changes, presented with possible brief presyncopal attack, rule out cardiac arrhythmia. 2. Elevated troponin level, rule out coronary artery disease. 3. Elevated ANP and BNP probably due to underlying mild congestive heart failure. 4. Multiple medical problems include dementia, vitamin D deficiency, hypertension, diabetes mellitus, status post permanent pacemaker placement, and chronic kidney disease/failure. RECOMMENDATIONS: 1. Continue with the current management initiated by Dr. Santos. 2. I agree with cardiology consult and rule out coronary artery disease to have another two sets of cardiac enzymes. 3. Physical therapy evaluation for her gait. 4. Normal pressure hydrocephalus. 5. Considering her age. The patient is not a candidate for possible underlying normal pressure hydrocephalus. M Aydin BRUNS MD DR: JASEN/ugo JOB#: [id number] / [id number]
[2018-01-03 19:39] VITALS: BP 163/90
[2018-01-03 23:15] VITALS: BP 158/89
--- NOTE | 2018-01-03 23:37 | PN ---
DATE: 01/03/2018 SUBJECTIVE: The patient denies any new medical or neurological complaints. She denies chest pain, shortness of breath or palpitation, dysarthria or dysphagia. OBJECTIVE: GENERAL: Well-developed, well-nourished -[place] female, not in acute distress. VITAL SIGNS: Blood pressure 153/76, respiratory rate 16, pulse is 88, temperature 98.1, not in acute distress. HEENT: Normocephalic, atraumatic, otherwise unremarkable. NECK: Supple. Negative for carotid bruit, lymphadenopathy or thyromegaly. LUNGS: Clear to A and P except for fine rales at the bases. ABDOMEN: Soft. Bowel sounds positive. EXTREMITIES: Positive for pitting edema. NEUROLOGIC: The patient is alert and disoriented to time and place. Speech is fluent. There is no language dysfunction. Memory, judgment and abstract thinkings are fair. The patient denies hallucination or delusion. Cranial nerves are grossly intact. No focal motor or sensory deficit. Deep tendon reflexes were symmetric and hypoactive with absent Achilles responses. Gait and the stance is steady, but the patient has abnormal tandem gait. LABORATORY DATA: CBC revealed white blood cells of 5000, hemoglobin 10.4, hematocrit 31.3, platelet count of 151,000. Chemistry revealed sodium of 146, potassium 3.7, chloride 109, CO2 of 27, BUN 33, creatinine 1.6, glucose is 124, calcium 9.2. IMPRESSION: 1. Brief loss of consciousness, rule out syncope versus non-convulsive seizures /cardiac arrhythmia. 2. Elevated troponin level with normal cardiac enzymes. 3. Multiple medical problems include dementia, diabetes mellitus and hypertension. RECOMMENDATIONS: 1. Cardiology following. 2. Physical evaluation and therapy. 3. Continue with current management initiated by Dr. Santos. M Aydin BURNS MD DR: JASEN/ugo JOB#: [id number] / [id number]
--- NOTE | 2018-01-04 01:09 | PN ---
DATE: 01/03/2018 SUBJECTIVE: The patient is sitting comfortably in her chair in no apparent distress. She is awake, alert, definitely confused. She was evaluated by the Cardiology team and their plan is to interrogate her pacemaker to make sure that there are no arrhythmias that might be the cause of her syncope; however, there are no plans for any invasive ischemic workup. PHYSICAL EXAMINATION: GENERAL: When I examined her this morning, she looked well and was clearly in no apparent respiratory distress, slightly pale, but no jaundice, cyanosis or thyromegaly. No jugular venous distension. No lower limb edema. VITAL SIGNS: Her heart rate was 84, blood pressure was 166/92, temperature was 98.6, respiratory rate 20 and oxygen saturation was 96%. HEAD, EYES, EARS, NOSE AND THROAT: Normocephalic, atraumatic. NECK: Supple. HEART: Showed normal first and second heart sounds. No gallop, rub or murmur. CHEST: Clear to auscultation. No crepitation or rhonchi. ABDOMEN: Distended, soft, nontender. NEUROLOGIC: She is demented, but without any obvious lateralizing sign. All her cranial nerves are intact. She moves extremities without difficulty. She ambulates with assistance. Her intake over the last 24 hours was 900, output was 530. LABORATORY DATA: As of this morning showed a white cell count of 5000, hemoglobin 10, hematocrit 30, MCV 87 and platelet count of 151,000. Her serum sodium is 146, potassium 3.7, chloride 109, bicarbonate 27, anion gap of 10, BUN 33, creatinine 1.6. Estimated GFR was 57 mL per minute. Her glucose 124, calcium was 9.2, magnesium 2. Total bilirubin, AST, ALT, alkaline phosphatase were normal. Total protein was 6.1, albumin was 2.8. She has 3 sets of cardiac enzymes showed that the troponin is trending upward. The last one was 0.228. ASSESSMENT AND PLAN: The patient was seen in consultation by the Cardiology team and basically the plan is to obtain the records and have pacemaker interrogated. As far as her non-ST segment elevation myocardial infarction, medical management will continue. She has chronic systolic congestive heart failure, appears to be well-compensated, peripheral arterial disease status post thrombectomy, hypertension, chronic kidney disease and dementia. No invasive ischemic workup was recommended given her age and her comorbidity. SERGE HORNE MD DR: Bhargavi JOB#: [id number] / [id number]
[2018-01-04 06:08] VITALS: BP 168/83
[2018-01-04 07:20] LABS: CALCIUM 9.2 mg/dL (8.5-10.1); CREATININE 1.5 mg/dL (0.6-1.0); GFR 39.7; POTASSIUM 3.7 mmol/L (3.5-5.1)
[2018-01-04] MEDS: INSULIN ASPART 300 UNITS/3 ML INSULN.PEN SQ SCH ×4 (07:30→21:00)
[2018-01-04] MEDS: CARVEDILOL 12.5 MG TABLET PO SCH ×2 (08:23→18:00)
[2018-01-04] MEDS: GLIMEPIRIDE 2 MG TABLET PO SCH (08:23)
[2018-01-04] MEDS: ASPIRIN 325 MG TABLET PO SCH (08:24)
[2018-01-04] MEDS: LOSARTAN 50 MG TABLET. PO SCH (08:24)
[2018-01-04] MEDS: FUROSEMIDE 20 MG TABLET PO SCH (08:24)
[2018-01-04] MEDS: POLYETHYLENE GLYCOL 3350 17 GM PACKET. PO SCH (08:25)
--- NOTE | 2018-01-04 08:46 | PDOC ---
PROGRESS NOTES Diagnosis Problem Problems Medical Problems: (1) Altered level of consciousness Status: Acute (2) Dementia Status: Acute (3) Elevated lactic acid level Status: Acute (4) Elevated troponin Status: Acute (5) Microscopic hematuria Status: Acute (6) Pneumonia Status: Acute (7) Uncontrolled diabetes mellitus Status: Acute Assessment Problems Medical Problems: (1) Altered level of consciousness Status: Acute (2) Dementia Status: Acute (3) Elevated lactic acid level Status: Acute (4) Elevated troponin Status: Acute (5) Microscopic hematuria Status: Acute (6) Pneumonia Status: Acute (7) Uncontrolled diabetes mellitus Status: Acute 1. Syncope - no significant arrhythmias on tele, no orthostasis. awaiting information on Pacemaker. 2. NSTEMI - angina free. continue medical mgmt at this time. 3. Hx chronic systolic hf - continues to be compensated at this time 4. PAD - recent thrombectomy, stable 5. 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 dementia Problems: Subjective no new complaints, no chest pain, dyspnea or palpitations Objective Vital Signs Date Time Temp Pulse Resp B/P (MAP) Pulse Ox O2 Delivery O2 Flow Rate FiO2 01/04/18 08:24 71 168/83 01/04/18 06:08 20 98 01/03/18 19:45 Room Air 01/03/18 19:39 98.3 Intake and Output 01/04/18 07:00 Intake Total 1040 ml Balance 1040 ml Intake Oral 1040 ml # Voids 6 # Bowel Movements 1 Abdomen: Normal bowel sounds, Soft Heart: Regular rate, Normal S1, Normal S2 Extremities: No cyanosis, Normal pulses General: Alert, Cooperative Lungs: Clear to auscultation Review of Relevant I have reviewed the following items holger (where applicable) has been applied. Labs Laboratory Tests Test 01/02/18 12:49 01/02/18 12:54 01/02/18 12:56 01/02/18 16:15 White Blood Count 6.8 x10^3/uL (4.0-11.0) Red Blood Count 3.89 x10^6/uL (3.50-5.40) Hemoglobin 11.1 g/dL (12.0-15.5) Hematocrit 34.7 % (36.0-47.0) Mean Corpuscular Volume 89 fL (79-100) Mean Corpuscular Hemoglobin 29 pg (25-35) Mean Corpuscular Hemoglobin Concent 32 g/dL (31-37) Red Cell Distribution Width 18.4 % (11.5-14.5) Platelet Count 178 x10^3/uL (140-400) Neutrophils (%) (Auto) 74 % (31-73) Lymphocytes (%) (Auto) 16 % (24-48) Monocytes (%) (Auto) 8 % (0-9) Eosinophils (%) (Auto) 1 % (0-3) Basophils (%) (Auto) 1 % (0-3) Neutrophils # (Auto) 5.1 x10^3uL (1.8-7.7) Lymphocytes # (Auto) 1.1 x10^3/uL (1.0-4.8) Monocytes # (Auto) 0.6 x10^3/uL (0.0-1.1) Eosinophils # (Auto) 0.1 x10^3/uL (0.0-0.7) Basophils # (Auto) 0.1 x10^3/uL (0.0-0.2) Prothrombin Time 12.6 SEC (9.4-11.4) Prothromb Time International Ratio 1.2 (0.9-1.1) Sodium Level 145 mmol/L (136-145) Potassium Level 4.4 mmol/L (3.5-5.1) Chloride Level 106 mmol/L (98-107) Carbon Dioxide Level 28 mmol/L (21-32) Anion Gap 11 (6-14) Blood Urea Nitrogen 34 mg/dL (7-20) Creatinine 1.7 mg/dL (0.6-1.0) Estimated GFR (Cockcroft-Gault) 34.4 BUN/Creatinine Ratio 20 (6-20) Glucose Level 329 mg/dL (70-99) Lactic Acid Level 3.2 mmol/L (0.4-2.0) 2.4 mmol/L (0.4-2.0) Calcium Level 9.3 mg/dL (8.5-10.1) Total Bilirubin 0.5 mg/dL (0.2-1.0) Aspartate Amino Transf (AST/SGOT) 25 U/L (15-37) Alanine Aminotransferase (ALT/SGPT) 27 U/L (14-59) Alkaline Phosphatase 92 U/L (46-116) Creatine Kinase 91 U/L (26-192) Creatine Kinase MB (Mass) 2.6 ng/mL (0.0-3.6) Creatine Kinase MB Relative Index 2.9 % (0-4) Troponin I Quantitative 0.191 ng/mL (0-0.055) 0.226 ng/mL (0-0.055) PZ-Ngu-U-Type Natriuretic Peptide 7560 pg/mL (0-449) Total Protein 6.2 g/dL (6.4-8.2) Albumin 3.0 g/dL (3.4-5.0) Albumin/Globulin Ratio 0.9 (1.0-1.7) Urine Collection Type U cath Urine Color Yellow Urine Clarity Hazy Urine pH 6.5 Urine Specific [place] 1.020 Urine Protein 100 mg/dl (NEG-TRACE) Urine Glucose (UA) 250 mg/dL (NEG) Urine Ketones (Stick) Neg mg/dL (NEG) Urine Blood Small (NEG) Urine Nitrite Neg (NEG) Urine Bilirubin Neg (NEG) Urine Urobilinogen Dipstick 0.2 mg/dL (0.2 mg/dL) Urine Leukocyte Esterase Neg (NEG) Urine RBC 3-5 /HPF (0-2) Urine WBC Occ /HPF (0-4) Urine Squamous Epithelial Cells Few /LPF Urine Bacteria 0 /HPF (0-FEW) Glucose (Fingerstick) 287 mg/dL (70-99) Triglycerides Level 63 mg/dL (0-150) Cholesterol Level 193 mg/dL (0-200) LDL Cholesterol, Calculated 94 mg/dL (0-100) VLDL Cholesterol, Calculated 12 mg/dL (0-40) Non-HDL Cholesterol Calculated 106 mg/dL (0-129) HDL Cholesterol 87 mg/dL (40-60) Cholesterol/HDL Ratio 2.0 Test 01/02/18 17:09 01/02/18 19:52 01/02/18 20:30 01/03/18 06:29 Glucose (Fingerstick) 282 mg/dL (70-99) 277 mg/dL (70-99) Troponin I Quantitative 0.228 ng/mL (0-0.055) White Blood Count 5.0 x10^3/uL (4.0-11.0) Red Blood Count 3.58 x10^6/uL (3.50-5.40) Hemoglobin 10.4 g/dL (12.0-15.5) Hematocrit 31.3 % (36.0-47.0) Mean Corpuscular Volume 87 fL (79-100) Mean Corpuscular Hemoglobin 29 pg (25-35) Mean Corpuscular Hemoglobin Concent 33 g/dL (31-37) Red Cell Distribution Width 18.4 % (11.5-14.5) Platelet Count 151 x10^3/uL (140-400) Sodium Level 146 mmol/L (136-145) Potassium Level 3.7 mmol/L (3.5-5.1) Chloride Level 109 mmol/L (98-107) Carbon Dioxide Level 27 mmol/L (21-32) Anion Gap 10 (6-14) Blood Urea Nitrogen 33 mg/dL (7-20) Creatinine 1.6 mg/dL (0.6-1.0) Estimated GFR (Cockcroft-Gault) 36.9 BUN/Creatinine Ratio 21 (6-20) Glucose Level 124 mg/dL (70-99) Calcium Level 9.2 mg/dL (8.5-10.1) Magnesium Level 2.0 mg/dL (1.8-2.4) Total Bilirubin 0.5 mg/dL (0.2-1.0) Aspartate Amino Transf (AST/SGOT) 21 U/L (15-37) Alanine Aminotransferase (ALT/SGPT) 25 U/L (14-59) Alkaline Phosphatase 79 U/L (46-116) Total Protein 6.1 g/dL (6.4-8.2) Albumin 2.8 g/dL (3.4-5.0) Albumin/Globulin Ratio 0.8 (1.0-1.7) Test 01/03/18 07:11 01/03/18 11:20 01/03/18 16:05 01/03/18 19:53 Glucose (Fingerstick) 112 mg/dL (70-99) 192 mg/dL (70-99) 216 mg/dL (70-99) 162 mg/dL (70-99) Test 01/04/18 06:49 01/04/18 07:29 Sodium Level 145 mmol/L (136-145) Potassium Level 3.7 mmol/L (3.5-5.1) Chloride Level 108 mmol/L (98-107) Carbon Dioxide Level 27 mmol/L (21-32) Anion Gap 10 (6-14) Blood Urea Nitrogen 33 mg/dL (7-20) Creatinine 1.5 mg/dL (0.6-1.0) Estimated GFR (Cockcroft-Gault) 39.7 Glucose Level 105 mg/dL (70-99) Calcium Level 9.2 mg/dL (8.5-10.1) Glucose (Fingerstick) 98 mg/dL (70-99) Microbiology 01/02/18 Blood Culture - Preliminary, Resulted NO GROWTH AFTER 1 DAY Medications Current Medications Aspirin (Children'S Aspirin) 324 mg 1X ONCE PO ; Start 01/02/18 at 14:10; Stop 01/02/18 at 14:11; Status DC Ceftriaxone Sodium 1 gm/ Sodium Chloride 50 ml @ 100 mls/hr 1X ONCE IV ; Start 01/02/18 at 14:15; Stop 01/02/18 at 14:44; Status UNV Sodium Chloride 1,000 ml @ 75 mls/hr 1X ONCE IV Last administered on at 15:27; Start 01/02/18 at 14:15; Stop 01/03/18 at 03:34; Status DC Ceftriaxone Sodium (Rocephin) 1 gm 1X ONCE IVP Last administered on 01/02/18at 15:28; Start 01/02/18 at 14:30; Stop 01/02/18 at 14:31; Status DC Aspirin (Brooks Aspirin) 325 mg DAILY PO Last administered on 01/04/18at 08:24; Start 01/03/18 at 09:00 Furosemide (Lasix) 20 mg DAILY PO Last administered on 01/04/18at 08:24; Start 01/03/18 at 09:00 Glimepiride (Amaryl) 2 mg DAILY PO Last administered on 01/04/18at 08:23; Start 01/03/18 at 09:00 Carvedilol (Coreg) 12.5 mg BIDWMEALS PO ; Start 01/02/18 at 17:00; Stop at 17:22; Status DC Vitamin D (Vitamin D3) 50,000 unit WEEKLY PO Last administered on 01/04/18at 08: 25; Start 01/04/18 at 09:00 Losartan Potassium (Cozaar) 100 mg DAILY PO Last administered on 01/04/18at 08: 24; Start 01/03/18 at 09:00 Polyethylene Glycol (miraLAX) 17 gm DAILY PO Last administered on 01/04/18at 08: 25; Start 01/03/18 at 09:00 Insulin Aspart (NovoLOG) 0-7 UNITS QIDACHS SQ Last administered on 01/03/18at 17 :19; Start 01/02/18 at 21:00 Dextrose 12.5 gm PRN Q15MIN PRN IV SEE COMMENTS; Start 01/02/18 at 17:15 Carvedilol (Coreg) 12.5 mg DAILY PO ; Start 01/03/18 at 09:00; Status UNV Carvedilol (Coreg) 12.5 mg BIDWMEALS PO Last administered on 01/04/18at 08:23; Start 01/03/18 at 17:00 Active Scripts Active Reported Glimepiride 2 Mg Tablet 1 Tab PO DAILY Furosemide 20 Mg Tablet 1 Tab PO DAILY Coreg Cr (Carvedilol Phosphate) 40 Mg Cpmp.24hr 1 Cap PO DAILY Aspirin 325 Mg Tablet 1 Tab PO DAILY Polyethylene Glycol 3350 2,500 Gm Powder 2,500 Gm MC Losartan Potassium 100 Mg Tablet 100 Mg PO DAILY Vitals/I & O Vital Sign - Last 24 Hours 01/03/18 01/03/18 01/03/18 01/03/18 10:10 15:23 15:23 15:24 Temp 98.6 97.7 Pulse 84 75 85 88 Resp 20 20 B/P (MAP) 166/92 (116) 148/82 (104) 165/99 (121) 156/78 (104) Pulse Ox 96 93 O2 Delivery Room Air Room Air 01/03/18 01/03/18 01/03/18 01/03/18 17:16 19:39 19:45 23:15 Temp 98.3 Pulse 88 76 65 Resp 18 20 B/P (MAP) 156/78 163/90 (114) 158/89 (112) Pulse Ox 98 99 O2 Delivery Room Air Room Air 01/04/18 01/04/18 01/04/18 06:08 08:23 08:24 Pulse 71 71 71 Resp 20 B/P (MAP) 168/83 (111) 168/83 168/83 Pulse Ox 98 Intake and Output 01/03/18 01/03/18 01/04/18 15:00 23:00 07:00 Intake Total 600 ml 320 ml 120 ml Balance 600 ml 320 ml 120 ml HI [employer] Jan 04, 2018 08:46
[2018-01-04] MEDS ORDERED: CHOLECALCIFEROL (VITAMIN D3) 50,000 UNIT CAPSULE PO SCH (09:00)
[2018-01-04 11:14] VITALS: BP 151/88
[2018-01-04 16:00] VITALS: BP 146/62
[2018-01-04 19:05] VITALS: BP 108/68
[2018-01-05 00:05] VITALS: BP 155/83
--- NOTE | 2018-01-05 00:24 | PN ---
DATE: 01/04/2018 SUBJECTIVE: The patient is sitting comfortably in her chair in no apparent respiratory distress. She denied any complaint. Nursing staff did not voice any concern, particularly she has no further syncopal episode. We finally managed to find out that her pacemaker is [employer]onic DDDR. She apparently has had her pacemaker placed in [place], but Dr. Prince was following her and he interrogated the pacemaker on 03/31/2017. PHYSICAL EXAMINATION: GENERAL: When I examined her today, she looked well and was clearly in no apparent respiratory distress, pale, but no jaundice, cyanosis, or thyromegaly. No jugular venous distension. No limb edema. VITAL SIGNS: Her heart rate was 74, blood pressure 151/88, temperature was 98.2, respiratory rate 20, and oxygen saturation was 95%. HEAD, EYES, EARS, NOSE AND THROAT: Normocephalic, atraumatic. NECK: Supple. HEART: Showed normal first and second heart sounds. No gallop, rub or murmur. CHEST: Clear to auscultation. No crepitation or rhonchi. ABDOMEN: Distended, soft, nontender. NEUROLOGIC: She is demented without any obvious lateralizing sign. All cranial nerves intact. She moves extremities without difficulty. She walks with a walker. Her intake over the last 24 hours was 900, output was 530. LABORATORY DATA: Her lab work this morning showed a white cell count 5000, hemoglobin 10, hematocrit 31, MCV 87 and a platelet count of 151,000. Her chemistry showed a serum sodium of 145, potassium 3.7, chloride 108, bicarbonate 27, anion gap of 10, BUN 33, creatinine 1.5, estimated GFR was 105 mL per minute. Her calcium was 9.2. ASSESSMENT: Syncopal episode versus cardiac arrhythmia, brief loss of consciousness, non-ST segment elevation, chronic systolic congestive heart failure seems to be well compensated, hypertension, chronic kidney disease and dementia. PLAN: To await the interrogation of her pacemaker and if there is no evidence of arrhythmias, the patient can be discharged to be followed by her primary care physician. She apparently goes to [email or web address], the number there is [phone]. Rene is the manager document there. His number is [phone] and her pacemaker is Medtronic DDDR ____. SERGE HORNE MD DR: Bhargavi JOB#: [id number] / [id number]
[2018-01-05 05:46] VITALS: BP 157/88
[2018-01-05] MEDS: INSULIN ASPART 300 UNITS/3 ML INSULN.PEN SQ SCH ×3 (07:30→17:23)
[2018-01-05] MEDS: POLYETHYLENE GLYCOL 3350 17 GM PACKET. PO SCH (08:43)
[2018-01-05] MEDS: GLIMEPIRIDE 2 MG TABLET PO SCH (08:44)
[2018-01-05] MEDS: CARVEDILOL 12.5 MG TABLET PO SCH ×2 (08:44→17:20)
[2018-01-05] MEDS: FUROSEMIDE 20 MG TABLET PO SCH (08:44)
[2018-01-05] MEDS: LOSARTAN 50 MG TABLET. PO SCH (08:45)
[2018-01-05] MEDS: ASPIRIN 325 MG TABLET PO SCH (08:45)
[2018-01-05 10:45] VITALS: BP 150/83
[2018-01-05 14:53] VITALS: BP 165/89
--- NOTE | 2018-01-05 16:14 | DS ---
DATE OF DISCHARGE: 01/05/2018 HOSPITAL COURSE: The patient is an 87-year-old -Indian female patient, who was seem to be syncopal episode. The patient, herself is demented, does not really give any useful information. She was extensively investigated and was basically found to have non-ST segment elevation myocardial infarction. We did interrogate her pacemaker and apparently no arrhythmias detected. The patient remained hemodynamically stable. She has had no further syncopal episodes while in the hospital and decision was made to discharge her home. PHYSICAL EXAMINATION: GENERAL: When I examined her this afternoon, she looked well. VITAL SIGNS: Her heart rate was 71, blood pressure was 165/89, temperature was 98.1, respiratory rate was 18 and oxygen saturation was 94%. HEAD, EYES, EARS, NOSE AND THROAT: Showed she is normocephalic, atraumatic. NECK: Supple. HEART: Showed normal first and second heart sounds. No gallop, rub or murmur. CHEST: Clear to auscultation. No crepitation or rhonchi. ABDOMEN: Distended, soft, nontender. NEUROLOGIC: She is awake, alert, confused, but without any lateralizing sign. All her cranial nerves intact. She moves extremities without difficulty. She ambulates with a walker. Her intake over the last 24 hours was 1040. No output was recorded. LABORATORY DATA: As of this morning showed serum sodium of 145, potassium 3.7, chloride 108, bicarbonate 27, anion gap of 10, BUN 33, creatinine 1.5, estimated GFR was 40 mL per minute. Her glucose 105, calcium was 9.2. DISCHARGE MEDICATIONS: She was discharged home to continue on following medications: Aspirin 325 mg once a day, carvedilol for Coreg CR 40 mg once a day, vitamin D2 50,000 units once a week, furosemide 20 mg once a day, glimepiride 2 mg daily, losartan potassium 100 mg once a day, polyethylene glycol 17 grams daily for constipation. FINAL DISCHARGE DIAGNOSES: 1. Syncope. No significant arrhythmias detected on telemetry. No orthostatic hypotension and the pacemaker interrogation revealed no evidence of arrhythmias. 2. Non-ST segment elevation myocardial infarction. However, the patient is angina free. No ischemic workup was recommended by the Cardiology team, given her age and comorbidities. 3. Chronic systolic congestive heart failure seemed to be well compensated. Peripheral arterial disease with recent thrombectomy. 4. Hypertension. 5. Chronic kidney disease. 6. Dementia. SERGE HORNE MD DR: TAYLOR/ugo JOB#: [id number] / [id number]
[2018-01-05 17:20] VITALS: BP 165/89
--- NOTE | 2018-01-06 08:05 | PN ---
DATE: 01/04/2018 SUBJECTIVE: The patient denies any new medical or neurological complaints. She denies headaches, visual disturbances, nausea, vomiting, chest pain, shortness of breath or palpitation. The patient stated, "I don't have any complaints and I'm healthy. OBJECTIVE: GENERAL: Well-developed, well-nourished -[place]ib[place] female, not in acute distress. VITAL SIGNS: Blood pressure 168/83, respiratory rate is 20, pulse is 71 and regular, temperature is 98.1 and oxygen saturation 98% on room air. HEENT: Normocephalic, atraumatic, otherwise unremarkable. NECK: Supple, negative for carotid bruit, lymphadenopathy or thyromegaly. LUNGS: Clear to A and P. CARDIOVASCULAR: Regular rate and rhythm, normal S1, S2. ABDOMEN: Soft. Bowel sounds positive. There is no palpable mass or organomegaly or tenderness. EXTREMITIES: Negative for cyanosis, clubbing, pitting edema. NEUROLOGICAL EXAM: Mental Status: The patient is alert, but disoriented to time. She is oriented to place. She knows she is in [facility]. There is no language dysfunction. Memory, judgment and abstract thinking are fair. The patient denies hallucination or delusion. Cranial nerves are grossly intact. No focal motor or sensory deficit. Deep tendon reflexes were symmetric and hypoactive with absent Achilles responses. Gait: The stance is steady, but the patient has abnormal tandem gait. LABORATORY DATA: CBC revealed white blood cells of 5000, hemoglobin 10, hematocrit 31, platelet count 151,000. Chemistry revealed sodium 145, potassium 3.7, chloride 108, CO2 of 27, BUN 33, creatinine 1.5, calcium 9.2. IMPRESSION: 1. Possible syncopal attacks versus cardiac arrhythmia, status post pacemaker placement; however, the pacemaker placement was integrated by her algologist in 03/2007. 2. Multiple medical problems that include dementia, diabetes mellitus and hypertension. 3. Compensated chronic congestive heart failure, hypertension and chronic kidney disease. RECOMMENDATIONS: 1. Continue with current management as initiated by Dr. Santos. 2. Physical therapy evaluation. 3. Cardiology is following up. M Ayidn BURNS MD DR: JASEN/ugo JOB#: [id number] / [id number]
--- NOTE | 2018-01-06 08:14 | PN ---
DATE: 01/05/2018 REFERRING PHYSICIAN: Dr. Cj Santos SUBJECTIVE: The patient denies any new medical or neurological complaints. OBJECTIVE: GENERAL: Well-developed, well-nourished -Malag[place] female, not in acute distress. VITAL SIGNS: Blood pressure 165/89, respiratory rate 18, pulse is 71, oxygen saturation 94% and temperature 98.1. HEENT: Normocephalic, atraumatic, otherwise unremarkable. NECK: Supple. Negative for carotid bruit, lymphadenopathy or thyromegaly. LUNGS: Clear to A and P. CARDIOVASCULAR: Regular rhythm, normal S1, S2. There is no S3, S4, murmur. ABDOMEN: Soft. Bowel sounds positive. EXTREMITIES: Negative for cyanosis, clubbing or pitting edema. NEUROLOGIC: The patient is alert to herself and place. She is disoriented to time. Speech is fluent. There is no language dysfunction. Memory, judgment, and abstract thinking are fair. The patient denies hallucination or delusion. Cranial nerves grossly intact. No focal motor or sensory deficit. Deep tendon reflexes were symmetric and hypoactive. The stance is steady. The patient uses a walker for ambulation. LABORATORY DATA: Chemistry revealed sodium 145, potassium 3.7, chloride 108, CO2 is 27, BUN 33, creatinine 1.5, glucose 105, calcium 9.2. IMPRESSION: 1. Syncopal attack resulted in a brief loss of consciousness, rule out cardiac arrhythmia. 2. Status post pacemaker placement; however, the patient has no orthostatic hypotension. Integration of the pacemaker revealed no evidence of cardiac arrhythmia. 3. Multiple medical problems that include hypertension, chronic compensated congestive heart failure, chronic kidney disease and dementia. RECOMMENDATIONS: We will continue with current management. The patient is neurologically stable. The patient needs physical therapy. M Aydin BURNS MD DR: JASEN/ugo JOB#: [id number] / [id number]
== END 2018-01-05 17:54 | disposition home or self-care (01) | DRG 280 ==
LOC: ER 12:44 → 1 SOUTH 15:36
PROVIDERS: ADMIT Internal Medicine; ATTEND Internal Medicine
PROC: 4B02XSZ Measurement of Cardiac Pacemaker, External Approach (ICD-10-PCS; principal; 2018-01-02)
DX: I21.4 Non-ST elevation (NSTEMI) myocardial infarction (principal); J18.9 Pneumonia, unspecified organism; E11.22 Type 2 diabetes mellitus with diabetic chronic kidney disease; E11.51 Type 2 diabetes mellitus with diabetic peripheral angiopathy without gangrene; I13.0 Hypertensive heart and chronic kidney disease with heart failure and stage 1 through stage 4 chronic kidney disease, or unspecified chronic kidney disease; E87.2 Acidosis; I50.22 Chronic systolic (congestive) heart failure; E11.65 Type 2 diabetes mellitus with hyperglycemia; J98.11 Atelectasis; N18.4 Chronic kidney disease, stage 4 (severe); R55 Syncope and collapse; K59.00 Constipation, unspecified; E03.9 Hypothyroidism, unspecified; E55.9 Vitamin D deficiency, unspecified; F03.90 Unspecified dementia, unspecified severity, without behavioral disturbance, psychotic disturbance, mood disturbance, and anxiety; I25.10 Atherosclerotic heart disease of native coronary artery without angina pectoris; R31.29 Other microscopic hematuria; Z79.4 Long term (current) use of insulin; Z79.82 Long term (current) use of aspirin; Z79.899 Other long term (current) drug therapy; Z95.0 Presence of cardiac pacemaker
CPT/HCPCS: 36415; 70450; 71045; 80048; 80053; 80061; 81001; 82553; 82947; 83605; 83735; 83880; 84484; 85025; 85027; 85610; 87040; 93005; 96374; J0696; J1815; 97110; 97535; 99285-25; J7030

== ENCOUNTER 2018-01-17 08:57 | Inpatient (IN) | payer OTHER ==
[~2018-01-17] VITALS: Ht 152.4 cm; Wt 64.4 kg
[~2018-01-17 08:57] MED LIST: ASPI325T8 PO; CARV40CP PO; ERGO500027 PO; FURO20TA3 PO; GLIM2TAB2 PO; LOSA100T6 PO; POLY2500 MC
[2018-01-17 09:40] LABS: BASO % 0 % (0-3); EOS % 0 % (0-3); HEMATOCRIT 34.5 % (36.0-47.0); HEMOGLOBIN 11.2 g/dL (12.0-15.5); LYMPH # 0.7 x10^3/uL (1.0-4.8); LYMPH % 9 % (24-48); MEAN CORPUSCULAR HEMOGLOBIN 29 pg (25-35); MEAN CORPUSCULAR HGB CONC 32 g/dL (31-37); MEAN CORPUSCULAR VOLUME 88 fL (79-100); MONO # 0.8 x10^3/uL (0.0-1.1); MONO % 10 % (0-9); NEUT # 6.7 x10^3uL (1.8-7.7); NEUT % 81 % (31-73); PLATELET COUNT 153 x10^3/uL (140-400); RED BLOOD COUNT 3.93 x10^6/uL (3.50-5.40); RED CELL DISTRIBUTION WIDTH 18.5 % (11.5-14.5); WHITE BLOOD COUNT 8.3 x10^3/uL (4.0-11.0)
[2018-01-17 09:50] LABS: CALCIUM 8.8 mg/dL (8.5-10.1); CREATININE 2.5 mg/dL (0.6-1.0); MAGNESIUM 2.1 mg/dL (1.8-2.4); POTASSIUM 4.2 mmol/L (3.5-5.1)
[2018-01-17] MEDS ORDERED: LIDOCAINE 2% VISCOUS 15 ML SOLUTION. ONE (10:05)
--- NOTE | 2018-01-17 10:10 | RAD ---
CHEST AP ONLY History: Shortness of air, diabetes, unresponsive Comparison: 01/02/18 Findings: Single view of the chest is submitted. There is right base infiltrate. Heart size is stable. There is atherosclerotic calcification aortic arch. There is left electronic cardiac device. There is no pneumothorax. Impression: 1. There is right base infiltrate. Electronically signed by: En Branch MD (01/17/2018 10:06 AM) [id number]
--- NOTE | 2018-01-17 10:16 | RAD ---
CT HEAD WO CONTRAST History: Altered mental status, unresponsive, diabetes Comparison: None. Technique: Noncontrast CT imaging was performed of the head. Exposure: One or more of the following individualized dose reduction techniques were utilized for this examination: 1. Automated exposure control 2. Adjustment of the mA and/or kV according to patient size 3. Use of iterative reconstruction technique. Findings: There is again lateral and third ventriculomegaly although there is generalized supratentorial atrophy. There is again multifocal moderate to severe ill-defined low-density of the supratentorial parenchyma bilaterally. There is again encephalomalacia extending to the cortical surface of the right occipital lobe. Within the area of encephalomalacia, there is a subtle focus of relative increased density up to about 0.4 cm in size overall unchanged in size. This is not associated with significant mass effect. There is no new midline shift or intra-axial mass effect. Mastoid air cells are aerated. There is patchy [id number] ethmoid air cell and mild sphenoid sinus mucosal thickening. There is atherosclerotic calcification carotid siphons bilaterally. Impression: 1. 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 2. There is again supratentorial atrophy. 3. There is again multifocal ill-defined low-density of the supratentorial parenchyma probably due to chronic microvascular ischemic disease. Electronically signed by: En Branch MD (01/17/2018 10:13 AM) [id number]
[2018-01-17] MEDS ORDERED: FUROSEMIDE 40 MG/4 ML VIAL IVP ONE (10:45)
[2018-01-17] MEDS ORDERED: cefTRIAXone IV Push 1 GM VIAL. IVP ONE (10:45)
[2018-01-17 11:40] LABS: BILIRUBIN,URINE NEG (NEG); CLARITY,URINE CLOUDY; COLOR,URINE AMBER; GLUCOSE,URINE NEG (NEG)
[2018-01-17 11:41] LABS: AMORPHOUS SEDIMENT,UR PRESENT /HPF; BACTERIA,URINE MANY /HPF (0-FEW); HYALINE CASTS, URINE OCC /HPF; NITRITE,URINE NEG (NEG); SQUAMOUS EPITHELIAL CELL,UR FEW /LPF; UROBILINOGEN,URINE 1 mg/dL (0.2 mg/dL); YEAST,URINE PRESENT /HPF
--- NOTE | 2018-01-17 12:00 | PHYS DOC ---
Past History Past Medical History: Dementia, Diabetes, Hypertension Past Surgical History: Pacemaker Smoking: Non-smoker Alcohol Use: None Drug Use: None Adult General Chief Complaint Chief Complaint: ALTERED MENTAL STATUS HPI HPI Patient is a 87 year old F who presents with altered mental status that started this morning. Also is accompanied by her son who states that she has been coughing more over the weekend. He states that she was discharged from the hospital approximately 2 weeks ago after being treated for congestive heart failure. He notes that she has had significant increase in swelling in the lower extremities over the past several days as well as occasionally mentioning shortness of breath. He feels that she coughs after eating and is difficult to get her to eat. He has no other known associated symptoms. Her shortness of breath is worse with activity and improved with rest. She also feels that her shortness of breath is worse when lying flat. Her history is limited due to baseline dementia and current medical status. Most of her history was obtained from her son Review of Systems Review of Systems Constitutional: Denies fever or chills [] Eyes: Denies change in visual acuity, redness, or eye pain [] HENT: Denies nasal congestion or sore throat [] Respiratory: Negative except history of present illness Cardiovascular: No additional information not addressed in HPI [] GI: Denies abdominal pain, nausea, vomiting, bloody stools or diarrhea [] : Denies dysuria or hematuria [] Musculoskeletal: Denies back pain or joint pain [] Integument: Denies rash or skin lesions [] Neurologic: Denies headache, focal weakness or sensory changes [] Endocrine: Denies polyuria or polydipsia [] All other systems were reviewed and found to be within normal limits, except as documented in this note. Family History Family History No pertinent family medical history was reported Current Medications Current Medications Current medications reviewed Current Medications Medications (Trade) Dose Ordered Sig/Clarence Start Time Stop Time Status Last Admin Dose Admin Ceftriaxone Sodium 1 gm/ Sodium Chloride 50 ml @ 100 mls/hr 1X ONCE 01/17/18 10:30 01/17/18 10:59 UNV Ceftriaxone Sodium (Rocephin) 1 gm 1X ONCE 01/17/18 10:45 01/17/18 10:46 DC 01/17/18 11:36 1 GM Furosemide (Lasix) 40 mg 1X ONCE 01/17/18 10:45 01/17/18 10:46 DC 01/17/18 10:55 40 MG Lidocaine HCl 15 ml STK-MED ONCE 01/17/18 10:05 01/17/18 10:06 DC Allergies Allergies Allergies Coded Allergies Type Severity Reaction Last Updated Verified No Known Drug Allergies 11/24/17 No Physical Exam Physical Exam Constitutional: Well developed, well nourished, no acute distress, non-toxic appearance. [] Very sleepy, arousable. HENT: atraumatic, Eyes: EOMI, conjunctiva normal, no discharge. [] Neck: Normal range of motion, no tenderness, supple, no stridor. [] Cardiovascular:Heart rate regular rhythm, Lungs & Thorax: Bilateral breath sounds clear to auscultation [] crackles noted mainly in the right base Abdomen: Bowel sounds normal, soft, no tenderness, no masses, no pulsatile masses. [] Skin: Warm, dry, no erythema, no rash. [] Back: No tenderness, no CVA tenderness. [] Extremities: No tenderness, no cyanosis, no clubbing, ROM intact, no edema. [] Neurologic: Arousable, patient unable or unwilling to follow commands during NIH testing. No focal deficits noted. Current Patient Data Vital Signs Please review nursing documentation for specifics on vitals Initial oxygen saturations were greater than 90%, heart rate in the 70s, blood pressure within normal limits during her stay in the emergency department. Lab Results Laboratory Tests Test 01/17/18 09:27 01/17/18 11:04 01/17/18 11:15 White Blood Count 8.3 x10^3/uL (4.0-11.0) Red Blood Count 3.93 x10^6/uL (3.50-5.40) Hemoglobin 11.2 g/dL (12.0-15.5) L Hematocrit 34.5 % (36.0-47.0) L Mean Corpuscular Volume 88 fL (79-100) Mean Corpuscular Hemoglobin 29 pg (25-35) Mean Corpuscular Hemoglobin Concent 32 g/dL (31-37) Red Cell Distribution Width 18.5 % (11.5-14.5) H Platelet Count 153 x10^3/uL (140-400) Neutrophils (%) (Auto) 81 % (31-73) H Lymphocytes (%) (Auto) 9 % (24-48) L Monocytes (%) (Auto) 10 % (0-9) H Eosinophils (%) (Auto) 0 % (0-3) Basophils (%) (Auto) 0 % (0-3) Neutrophils # (Auto) 6.7 x10^3uL (1.8-7.7) Lymphocytes # (Auto) 0.7 x10^3/uL (1.0-4.8) L Monocytes # (Auto) 0.8 x10^3/uL (0.0-1.1) Eosinophils # (Auto) 0.0 x10^3/uL (0.0-0.7) Basophils # (Auto) 0.0 x10^3/uL (0.0-0.2) Sodium Level 142 mmol/L (136-145) Potassium Level 4.2 mmol/L (3.5-5.1) Chloride Level 104 mmol/L (98-107) Carbon Dioxide Level 24 mmol/L (21-32) Anion Gap 14 (6-14) Blood Urea Nitrogen 46 mg/dL (7-20) H Creatinine 2.5 mg/dL (0.6-1.0) H Estimated GFR (Cockcroft-Gault) 22.0 Glucose Level 157 mg/dL (70-99) H Calcium Level 8.8 mg/dL (8.5-10.1) Magnesium Level 2.1 mg/dL (1.8-2.4) Troponin I Quantitative 0.183 ng/mL (0-0.055) H ON-Exm-E-Type Natriuretic Peptide 38800 pg/mL (0-449) H Lactic Acid Level 2.1 mmol/L (0.4-2.0) H Urine Collection Type U cath Urine Color Mariah Urine Clarity Cloudy Urine pH 5.0 Urine Specific [place] 1.025 Urine Protein >100 mg/dl (NEG-TRACE) Urine Glucose (UA) Neg mg/dL (NEG) Urine Ketones (Stick) Neg mg/dL (NEG) Urine Blood Large (NEG) Urine Nitrite Neg (NEG) Urine Bilirubin Neg (NEG) Urine Urobilinogen Dipstick 1 mg/dL (0.2 mg/dL) Urine Leukocyte Esterase Small (NEG) Urine RBC 1-2 /HPF (0-2) Urine WBC 11-20 /HPF (0-4) Urine Squamous Epithelial Cells Few /LPF Urine Amorphous Sediment Present /HPF Urine Bacteria Many /HPF (0-FEW) Urine Hyaline Casts Occ /HPF Urine Mucus Slight /LPF Urine Yeast Present /HPF EKG EKG Paced rhythm Radiology/Procedures Radiology/Procedures Chest x-ray - right lower lobe infiltrate with right pleural effusion Course & Med Decision Making Course & Med Decision Making Pertinent Labs and Imaging studies reviewed. (See chart for details) Blood cultures were obtained analysis was started on IV antibiotics. She was also given Lasix for her acute congestive heart failure. IV fluids were not given as her blood pressure was stable and normal and she was noted to be in acute heart failure Dragon Disclaimer Dragon Disclaimer This electronic medical record was generated, in whole or in part, using a voice recognition dictation system. Departure Departure: Impression: Primary Impression: Acute CHF Additional Impressions: Pneumonia Elevated troponin Vatty-sd-ijdjgmt kidney injury Disposition: ADMITTED INPATIENT Condition: STABLE Referrals: JAS DOAN DO (PCP) Problem Qualifiers Primary Impression: Acute CHF Heart failure type: unspecified Qualified Codes: I50.9 - Heart failure, unspecified Additional Impressions: Pneumonia Pneumonia type: due to unspecified organism Laterality: right Lung location : lower lobe of lung Qualified Codes: J18.1 - Lobar pneumonia, unspecified organism Mhnoo-er-yekpnnj kidney injury Acute renal failure type: unspecified Chronic kidney disease stage: unspecified stage Qualified Codes: N17.9 - Acute kidney failure, unspecified; N18.9 - Chronic kidney disease, unspecified ARLENE LYLE MD Jan 17, 2018 12:00
[2018-01-17 12:47] VITALS: BP 151/72
--- NOTE | 2018-01-17 15:01 | EKG ---
[address] [address] Test Date: 2018-01-17 Test Time: 10:32:53 Pat Name: ILEANA MERRILL Department: Room: 109 A Gender: F Contact Center Consultant: MERLIN : [id number] Requested By: ARLENE LYLE Order Number: [id number] Reading MD: Cedrick Newman Measurements Intervals [place] Rate: 64 P: 59 AK: 140 QRS: -85 QRSD: 168 T: 91 QT: 502 QTc: 523 Interpretive Statements SINUS RHYTHM V PACED Electronically Signed On 01-24-2018 13:44:43 CDT by Cedrick Newman
[2018-01-17 15:52] VITALS: BP 149/78
[2018-01-17 16:08] LABS: ALBUMIN 2.5 g/dL (3.4-5.0); ALBUMIN/GLOBULIN RATIO 0.7 (1.0-1.7); CALCIUM 8.7 mg/dL (8.5-10.1); CREATININE 2.5 mg/dL (0.6-1.0); POTASSIUM 4.1 mmol/L (3.5-5.1); TOTAL BILIRUBIN 0.6 mg/dL (0.2-1.0); TOTAL PROTEIN 6.1 g/dL (6.4-8.2)
[2018-01-17] MEDS: PIPERACILLIN/TAZOBACTAM 2.25 GM in IV NORMAL SALINE 50ML 50 ML IV SCH (16:13)
[2018-01-17] MEDS ORDERED: ALBU2.5V14 NEB (16:43)
[2018-01-17] MEDS ORDERED: ACET325T9 PO (16:43)
[2018-01-17] MEDS ORDERED: CARV25TA PO (16:45)
[2018-01-17] MEDS ORDERED: PROP10DR3 EACHEYE (16:45)
[2018-01-17] MEDS ORDERED: INSU100I17 SQ (16:45)
[2018-01-17] MEDS ORDERED: THYR60TA PO (16:45)
[2018-01-17] MEDS ORDERED: ALBUTEROL SULFATE 2.5 MG/3 ML NEBU. ONE (17:55)
[2018-01-17 19:20] VITALS: BP 132/43
--- NOTE | 2018-01-17 19:25 | HP ---
ADMIT DATE: 01/17/2018 HISTORY OF PRESENT ILLNESS: This is an 87-year-old -[place] female patient who was brought to the Emergency Room with altered mental status that started this morning. She was accompanied by her son who stated that she has been coughing more over the weekend. He stated that she was discharged from the hospital approximately 2 weeks ago after being treated for congestive heart failure. He notes that she has had significant increase in swelling of the left lower extremity over the past several weekdays as well as occasionally mentioning shortness of breath. He also stated that she is having cough after eating and is difficult to get her to eat. Her shortness of breath is worse with activity and improved with rest and according to her son her shortness of breath is worse when she is lying flat. The patient herself is severely demented, does not give any useful information and most of the information was obtained from her son. She was extensively evaluated in the Emergency Room and was found to have a slightly elevated troponin at 0.183. Her beta natriuretic peptide was high at more than 310,000. Her creatinine also has risen to 2.5 mg from baseline of 1.4 mg/dL. She was extensively investigated in the Emergency Room and had a CT scan of the head, which basically showed old infarct with cortical involvement of the right occipital lobe, small focus of relatively hyperdensity in this region, although similar in size, not convincingly representing presently of hemorrhage. There is again supratentorial atrophy. There is again multifocal ill-defined low density of the supratentorial parenchyma probably due to chronic microvascular ischemic disease and her chest x-ray showed that she has a right base infiltrate. The heart size is stable. There is atherosclerotic calcification, left electronic cardiac device. There is no pneumothorax. So, the patient was admitted with altered mental status, increased shortness of breath, cough, questionable aspiration pneumonia, has also ghuym-yo-tepshnh kidney injury and elevated troponin. She was started on ceftriaxone for possible community-acquired pneumonia and aspiration pneumonia. Given that she is in a daycare center, it is most likely that she might have healthcare-associated pneumonia and I probably expand her coverage and repeat 2 more sets of cardiac enzyme, repeat her lab work to make sure that the kidney function is not worsening more and consult the Cardiology team. AHMED M. OZZIE, MD DR: TAYLOR/ugo JOB#: [id number] / [id number]
[2018-01-17] MEDS: ALBUTEROL SULFATE 2.5 MG/3 ML NEBU. NEB SCH (20:29)
[2018-01-17 22:31] VITALS: BP 130/67
[2018-01-18] MEDS: PIPERACILLIN/TAZOBACTAM 2.25 GM in IV NORMAL SALINE 50ML 50 ML IV SCH ×3 (00:09→16:16)
[2018-01-18] MEDS: ALBUTEROL SULFATE 2.5 MG/3 ML NEBU. NEB SCH ×4 (04:16→22:33)
[2018-01-18 05:41] VITALS: BP 110/58
[2018-01-18 09:13] LABS: BASO % 0 % (0-3); EOS % 0 % (0-3); HEMATOCRIT 33.6 % (36.0-47.0); HEMOGLOBIN 10.8 g/dL (12.0-15.5); LYMPH % 9 % (24-48); MEAN CORPUSCULAR HEMOGLOBIN 28 pg (25-35); MEAN CORPUSCULAR HGB CONC 32 g/dL (31-37); MEAN CORPUSCULAR VOLUME 87 fL (79-100); MONO % 9 % (0-9); NEUT # 9.2 x10^3uL (1.8-7.7); NEUT % 82 % (31-73); PLATELET COUNT 154 x10^3/uL (140-400); RED BLOOD COUNT 3.87 x10^6/uL (3.50-5.40); RED CELL DISTRIBUTION WIDTH 18.2 % (11.5-14.5); WHITE BLOOD COUNT 11.3 x10^3/uL (4.0-11.0)
[2018-01-18 09:32] LABS: ALBUMIN/GLOBULIN RATIO 0.6 (1.0-1.7); CALCIUM 8.4 mg/dL (8.5-10.1); CREATININE 2.5 mg/dL (0.6-1.0); TOTAL BILIRUBIN 0.4 mg/dL (0.2-1.0); TOTAL PROTEIN 5.3 g/dL (6.4-8.2)
--- NOTE | 2018-01-18 09:34 | PDOC2 ---
HI SILVERIO DI[employer]ADER 01/18/18 0934: CONSULT Date of Admission DATE: 01/18/18 TIME: :18 Reason for Consult: CHF Problem List Problems Medical Problems: (1) Acute CHF Status: Acute (2) Cfizu-xu-gnawglb kidney injury Status: Acute (3) Elevated troponin Status: Acute (4) Pneumonia Status: Acute History of Present Illness Patient is an 87 year old female who presented to the ED with altered mental status which apparently started yesterday am. She was brought to the ED by a son who reported that she had been coughing over the last couple days and appeared more edematous as well as short of breath for a couple days. She has baseline dementia and is unable to give significant history so this is obtained from the chart. Her son also reported that she has episodes of coughing after eating and due to this they have difficult time getting her to eat. Past Medical History CAD, CHF, systolic EF of 45 status post pacemaker placement, dementia, hypertension, diabetes mellitus and hypothyroidism, recent mild NSTEMI managed medically, syncope. Echocardiogram 06/02/17 Left ventricle systolic function is mildly impaired. The Ejection Fraction is 45%. Transmitral Doppler flow pattern is Grade I-abnormal relaxation pattern. There is moderate concentric left ventricular hypertrophy. The left atrium is mildly dilated. The right atrium size is normal. The aortic valve is mildly sclerotic. The aortic valve is trileaflet. Doppler and Color Flow revealed trace aortic regurgitation. Doppler and Color Flow revealed mild mitral regurgitation. The mitral valve leaflets are mildly thickened. Doppler and Color Flow revealed mild tricuspid regurgitation. The pulmonary artery systolic pressure is estimated at 57 mmHg. There is moderate pulmonary hypertension. The pulmonary valve is not well visualized but appears to open adequately. Doppler and Color Flow revealed mild pulmonic valvular regurgitation. There is no evidence of significant pericardial effusion. 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 Right PT and peroneal occlusion Right mid and distal AT occlusion Collateral reconstitution of flow in the right DP Family History non contributory due to age Social History lives with family Current Medications Current Medications Lidocaine HCl 15 ml STK-MED ONCE .ROUTE ; Start 01/17/18 at 10:05; Stop at 10:06; Status DC Furosemide (Lasix) 40 mg 1X ONCE IVP Last administered on 01/17/18at 10:55; Start 01/17/18 at 10:45; Stop 01/17/18 at 10:46; Status DC Ceftriaxone Sodium 1 gm/ Sodium Chloride 50 ml @ 100 mls/hr 1X ONCE IV ; Start 01/17/18 at 10:30; Stop 01/17/18 at 10:59; Status UNV Ceftriaxone Sodium (Rocephin) 1 gm 1X ONCE IVP Last administered on 01/17/18at 11:36; Start 01/17/18 at 10:45; Stop 01/17/18 at 10:46; Status DC Piperacillin Sod/ Tazobactam Sod 2.25 gm/Sodium Chloride 50 ml @ 100 mls/hr Q8H IV Last administered on 01/18/18at 09:01; Start 01/17/18 at 16:00 Linezolid 300 ml @ 300 mls/hr Q12H IV Last administered on 01/18/18at 04:58; Start 01/17/18 at 17:00 Albuterol Sulfate (Ventolin) 2.5 mg RTQID NEB Last administered on 01/18/18at 04: 16; Start 01/17/18 at 20:00 Albuterol Sulfate (Ventolin) 2.5 mg STK-MED ONCE .ROUTE Last administered on at 18:01; Start 01/17/18 at 17:55; Stop 01/17/18 at 17:56; Status DC Active Scripts Active Reported Novolog Flexpen (Insulin Aspart) 100 Unit/1 Ml Insuln.pen 1 Unit SQ Coreg (Carvedilol) 25 Mg Tablet 1 Tab PO BID Systane Ultra 0.4-0.3% Eye Drp (Propylene Glycol/Peg 400) 10 Ml Drops 1 Drop EACHEYE BID [place] Thyroid (Thyroid,Pork) 60 Mg Tablet 1 Tab PO DAILY Albuterol Sulfate Conc Neb Soln (Albuterol Sulfate) 2.5 Mg/0.5 Ml Vial.neb 1 Vial NEB PRN TID PRN Tylenol (Acetaminophen) 325 Mg Tablet 1 Tab PO PRN TID Glimepiride 2 Mg Tablet 1 Tab PO DAILY LAST DOSE GIVEN: DATE: TODAY TIME: AM NEXT DOSE DUE: DATE: TOMORROW TIME: AM Furosemide 20 Mg Tablet 1 Tab PO DAILY LAST DOSE GIVEN: DATE: TODAY TIME: AM NEXT DOSE DUE: DATE: TOMORR TIME: AM Vitamin D2 (Ergocalciferol (Vitamin D2)) 50,000 Unit Capsule 1 Cap PO WEEKLY RESTART ON YOUR REGULAR DAY Aspirin 325 Mg Tablet 1 Tab PO DAILY LAST DOSE GIVEN: DATE: TODAY TIME: AM NEXT DOSE DUE: DATE: ORR TIME: AM Polyethylene Glycol 3350 2,500 Gm Powder 2,500 Gm MC PRN DAILY PRN LAST DOSE GIVEN: DATE: TODAY TIME: AM NEXT DOSE DUE: DATE: TOMORROW TIME: AM Allergies: Coded Allergies: No Known Drug Allergies (Unverified , 11/24/17) Review of System as per HPI or unobtainable due to mental status with exceptions as below Respiratory: YES: Cough General: Alert, Cooperative, No acute distress HEENT: Other (mucous membranes dry) Lungs: Other (basilar crackles and scattered wheeze) Heart: Regular rate, Normal S1, Normal S2 Abdomen: Normal bowel sounds Extremities: Other (+2 pedal edema) Neuro: Normal speech Psych/Mental Status: Mood NL VITALS Vital Signs Date Time Temp Pulse Resp B/P (MAP) Pulse Ox O2 Delivery O2 Flow Rate FiO2 01/18/18 05:41 98.3 73 20 110/58 (75) 94 Nasal Cannula 2.0 Labs Laboratory Tests Test 01/17/18 09:27 01/17/18 11:04 01/17/18 11:15 01/17/18 14:40 White Blood Count 8.3 x10^3/uL (4.0-11.0) Red Blood Count 3.93 x10^6/uL (3.50-5.40) Hemoglobin 11.2 g/dL (12.0-15.5) Hematocrit 34.5 % (36.0-47.0) Mean Corpuscular Volume 88 fL (79-100) Mean Corpuscular Hemoglobin 29 pg (25-35) Mean Corpuscular Hemoglobin Concent 32 g/dL (31-37) Red Cell Distribution Width 18.5 % (11.5-14.5) Platelet Count 153 x10^3/uL (140-400) Neutrophils (%) (Auto) 81 % (31-73) Lymphocytes (%) (Auto) 9 % (24-48) Monocytes (%) (Auto) 10 % (0-9) Eosinophils (%) (Auto) 0 % (0-3) Basophils (%) (Auto) 0 % (0-3) Neutrophils # (Auto) 6.7 x10^3uL (1.8-7.7) Lymphocytes # (Auto) 0.7 x10^3/uL (1.0-4.8) Monocytes # (Auto) 0.8 x10^3/uL (0.0-1.1) Eosinophils # (Auto) 0.0 x10^3/uL (0.0-0.7) Basophils # (Auto) 0.0 x10^3/uL (0.0-0.2) Sodium Level 142 mmol/L (136-145) Potassium Level 4.2 mmol/L (3.5-5.1) Chloride Level 104 mmol/L (98-107) Carbon Dioxide Level 24 mmol/L (21-32) Anion Gap 14 (6-14) Blood Urea Nitrogen 46 mg/dL (7-20) Creatinine 2.5 mg/dL (0.6-1.0) Estimated GFR (Cockcroft-Gault) 22.0 Glucose Level 157 mg/dL (70-99) Calcium Level 8.8 mg/dL (8.5-10.1) Magnesium Level 2.1 mg/dL (1.8-2.4) Troponin I Quantitative 0.183 ng/mL (0-0.055) CB-Ybi-X-Type Natriuretic Peptide 64938 pg/mL (0-449) Lactic Acid Level 2.1 mmol/L (0.4-2.0) 1.5 mmol/L (0.4-2.0) Urine Collection Type U cath Urine Color Mariah Urine Clarity Cloudy Urine pH 5.0 Urine Specific [place] 1.025 Urine Protein >100 mg/dl (NEG-TRACE) Urine Glucose (UA) Neg mg/dL (NEG) Urine Ketones (Stick) Neg mg/dL (NEG) Urine Blood Large (NEG) Urine Nitrite Neg (NEG) Urine Bilirubin Neg (NEG) Urine Urobilinogen Dipstick 1 mg/dL (0.2 mg/dL) Urine Leukocyte Esterase Small (NEG) Urine RBC 1-2 /HPF (0-2) Urine WBC 11-20 /HPF (0-4) Urine Squamous Epithelial Cells Few /LPF Urine Amorphous Sediment Present /HPF Urine Bacteria Many /HPF (0-FEW) Urine Hyaline Casts Occ /HPF Urine Mucus Slight /LPF Urine Yeast Present /HPF Test 01/17/18 15:35 01/17/18 15:47 01/17/18 20:00 01/17/18 21:15 Sodium Level 142 mmol/L (136-145) Potassium Level 4.1 mmol/L (3.5-5.1) Chloride Level 105 mmol/L (98-107) Carbon Dioxide Level 27 mmol/L (21-32) Anion Gap 10 (6-14) Blood Urea Nitrogen 48 mg/dL (7-20) Creatinine 2.5 mg/dL (0.6-1.0) Estimated GFR (Cockcroft-Gault) 22.0 BUN/Creatinine Ratio 19 (6-20) Glucose Level 164 mg/dL (70-99) Calcium Level 8.7 mg/dL (8.5-10.1) Total Bilirubin 0.6 mg/dL (0.2-1.0) Aspartate Amino Transf (AST/SGOT) 17 U/L (15-37) Alanine Aminotransferase (ALT/SGPT) 17 U/L (14-59) Alkaline Phosphatase 82 U/L (46-116) Troponin I Quantitative 0.220 ng/mL (0-0.055) 0.273 ng/mL (0-0.055) Total Protein 6.1 g/dL (6.4-8.2) Albumin 2.5 g/dL (3.4-5.0) Albumin/Globulin Ratio 0.7 (1.0-1.7) Glucose (Fingerstick) 140 mg/dL (70-99) 202 mg/dL (70-99) Test 01/18/18 07:55 Glucose (Fingerstick) 202 mg/dL (70-99) Images CXR - Impression: 1. There is right base infiltrate. Head CT - Impression: 1. There is again old infarct with cortical involvement of the right occipital lobe, small focus of relative hyperdensity in this region although similar in size, not convincingly medical representative of hemorrhage. 2. There is again supratentorial atrophy. 3. There is again multifocal ill-defined low-density of the supratentorial parenchyma probably due to chronic microvascular ischemic disease. Assessment/Plan 1. acute on chronic systolic HF - check echo for LVfunction. IV lasix given x 1. 2. PNA per per CXR. Tx per PCP 3. mild NSTEMI - angina free. trop elevation ~ equal to last month admission. continue medical mgmt at this time. 4. 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 hypertension - controlled, resume home medications once taking oral 6. dysphagia - swallow eval pending, as per PCP 7. PAD - recent thrombectomy- medical mgmt with resuming home medications 8. dementia, baseline Problems: KATHRYN BRAN MD 01/18/18 1437: CONSULT Allergies: Coded Allergies: No Known Drug Allergies (Unverified , 11/24/17) Assessment/Plan Patient seen and examined. Agree with [employer] EDUC[employer] TEACHER's assessment and plan. Mental status improved since admission Continue gentle diuresis for acute on chronic systolic heart failure Agree with 2-D echocardiogram to assess LV systolic function Slight troponin elevation probably demand ischemia - plan for conservative management considering her age and comorbidities Continue treatment of pneumonia per IM Thank you for your consultation Problems: HI SILVERIO APRN January 18, 2018 09:34 KATHRYN BRAN MD January 18, 2018 14:37
[2018-01-18 11:21] VITALS: BP 149/75
[2018-01-18] MEDS ORDERED: DEXTROSE 50% 25 GM / 50ML DISP.SYRIN. IV PRN (13:30)
[2018-01-18] MEDS: IV NORMAL SALINE 1,000ML 1,000 ML IV SCH (14:38)
[2018-01-18 15:28] VITALS: BP 121/69
[2018-01-18] MEDS: INSULIN LISPRO 300 UNITS/3 ML INSULN.PEN. SQ SCH (17:24)
[2018-01-18 19:35] VITALS: BP 130/84
[2018-01-18] MEDS: LACTOBACILLUS RHAMNOSUS GG 1 CAPSULE. PO SCH (22:17)
[2018-01-18 22:53] VITALS: BP 154/88
[2018-01-19] MEDS: PIPERACILLIN/TAZOBACTAM 2.25 GM in IV NORMAL SALINE 50ML 50 ML IV SCH ×3 (00:14→16:11)
--- NOTE | 2018-01-19 02:43 | PN ---
DATE: 01/18/2018 SUBJECTIVE: The patient is sitting comfortably in her chair today, definitely more awake, alert, appears to be able to talk. She is evaluated by the speech therapy to see whether she is safe for her to eat and drink. Unfortunately, her kidney function has not really improved and her creatinine continued to be high at 2.5, which is obviously dramatic rise from her recent admission here. At that time, her creatinine was 1.5 and 1.7. I actually held all her medication because she was unresponsive and particularly she was on furosemide as well as losartan. PHYSICAL EXAMINATION: GENERAL: When I saw her today, she looked well and was clearly in no apparent respiratory distress. Awake, alert, responding appropriately. She was slightly pale, but no jaundice, cyanosis or thyromegaly. No jugular venous distension. No limb edema. VITAL SIGNS: Her heart rate was 70, blood pressure was 149/75, temperature was 98.5, respiratory rate 20 and oxygen saturation was 95% on 2 liters of oxygen. HEAD, EYES, EARS, NOSE AND THROAT: Showed normocephalic, atraumatic. NECK: Supple. HEART: Showed normal first and second sounds. No gallop, rub or murmur. CHEST: Shows central trachea, equally reduced expansion, reduced air entry, vesicular sounds with crepitation mostly on the right side posteriorly. I could not appreciate any rhonchi. ABDOMEN: Slightly distended, soft, nontender. NEUROLOGIC: She is awake, alert, responding appropriately. Her cranial nerves intact. She moves her upper extremities to less extent than lower extremities. She is mostly bedbound, chair bound. Her intake over the last 24 hours was incompletely recorded, output was 700. LABORATORY DATA: As of this morning showed a white cell count of 11,300, hemoglobin 11, hematocrit 33, MCV 87 and platelet count of 154,000. Her chemistry showed a serum sodium 141, potassium 4, chloride 105, bicarbonate 27, anion gap of 9, BUN 49, creatinine of 2.5. Estimated GFR was 22 mL per minute. Her glucose was 208. Calcium was 8.4. Total bilirubin, AST, ALT, alkaline phosphatase were normal. Total protein was 5.7, albumin was 2. She has 3 sets of cardiac enzymes, which showed troponin to be arising from 0.183 to 0.22 to 0.273. Her chest x-ray was more consistent with right lower lobe infiltrate. IMPRESSION AND PLAN: The plan is to continue with IV antibiotic for healthcare-associated pneumonia. I will also start her on gentle hydration as I was not yesterday sure about whether she is in heart failure or just pneumonia. I will be starting her on D5 half with normal saline at 75 mL per minute, very closely and decide further management accordingly. SERGE HORNE MD DR: TAYLOR/ugo JOB#: [id number] / [id number]
[2018-01-19] MEDS: IV NORMAL SALINE 1,000ML 1,000 ML IV SCH ×2 (02:50→08:42)
[2018-01-19 05:32] VITALS: BP 105/60
[2018-01-19] MEDS: ALBUTEROL SULFATE 2.5 MG/3 ML NEBU. NEB SCH ×6 (05:50→22:16)
[2018-01-19 06:48] LABS: ALBUMIN 1.9 g/dL (3.4-5.0); ALBUMIN/GLOBULIN RATIO 0.6 (1.0-1.7); CALCIUM 8.1 mg/dL (8.5-10.1); CREATININE 2.4 mg/dL (0.6-1.0); GFR 23.1; POTASSIUM 3.6 mmol/L (3.5-5.1); TOTAL BILIRUBIN 0.4 mg/dL (0.2-1.0); TOTAL PROTEIN 5.2 g/dL (6.4-8.2)
[2018-01-19 06:51] LABS: HEMATOCRIT 33.9 % (36.0-47.0); RED BLOOD COUNT 3.89 x10^6/uL (3.50-5.40); RED CELL DISTRIBUTION WIDTH 18.3 % (11.5-14.5); WHITE BLOOD COUNT 9.8 x10^3/uL (4.0-11.0)
[2018-01-19] MEDS: LACTOBACILLUS RHAMNOSUS GG 1 CAPSULE. PO SCH ×2 (08:38→21:00)
[2018-01-19] MEDS: INSULIN LISPRO 300 UNITS/3 ML INSULN.PEN. SQ SCH ×4 (08:41→18:04)
--- NOTE | 2018-01-19 09:14 | PDOC ---
PROGRESS NOTES Diagnosis Problem Problems Medical Problems: (1) Acute CHF Status: Acute (2) Ptxys-vs-xjffywl kidney injury Status: Acute (3) Elevated troponin Status: Acute (4) Pneumonia Status: Acute Assessment Problems Medical Problems: (1) Acute CHF Status: Acute (2) Dsmcw-wy-kugtllp kidney injury Status: Acute (3) Elevated troponin Status: Acute (4) Pneumonia Status: Acute 1. acute on chronic systolic HF - echo pending. Currently off diuretic due to ARF. Receiving gentle hydration. repeat CXR. 2. PNA per per CXR. Tx per PCP 3. mild NSTEMI - angina free. trop elevation ~ equal to last month admission, likely demand mediated. continue medical mgmt at this time due to age and comorbidities. 4. 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 hypertension - controlled, resume home medications once taking oral 6. dysphagia - swallow eval pending, as per PCP 7. PAD - recent thrombectomy- medical mgmt with resuming home medications 8. dementia, baseline Problems: Subjective no chest pain, breathing easy, denies new complaints Objective Vital Signs Date Time Temp Pulse Resp B/P (MAP) Pulse Ox O2 Delivery O2 Flow Rate FiO2 01/19/18 05:51 100 Nasal Cannula 2.0 01/19/18 05:32 97.4 67 20 105/60 (75) Intake and Output 01/19/18 07:00 Intake Total 1368 ml Output Total 450 ml Balance 918 ml Intake Oral 120 ml IV Total 1248 ml Output Urine Total 450 ml # Voids 1 Abdomen: Normal bowel sounds, Soft, No tenderness Heart: Regular rate, Normal S1, Normal S2 Extremities: No cyanosis, Normal pulses, Other (+ edema unchanged) General: Alert, Cooperative, No acute distress Lungs: Other (decreased bases, exp wheezing) Neuro: Normal speech Psych/Mental Status: Mood NL Review of Relevant I have reviewed the following items holger (where applicable) has been applied. Labs Laboratory Tests Test 01/17/18 09:27 01/17/18 11:04 01/17/18 11:15 01/17/18 14:40 White Blood Count 8.3 x10^3/uL (4.0-11.0) Red Blood Count 3.93 x10^6/uL (3.50-5.40) Hemoglobin 11.2 g/dL (12.0-15.5) Hematocrit 34.5 % (36.0-47.0) Mean Corpuscular Volume 88 fL (79-100) Mean Corpuscular Hemoglobin 29 pg (25-35) Mean Corpuscular Hemoglobin Concent 32 g/dL (31-37) Red Cell Distribution Width 18.5 % (11.5-14.5) Platelet Count 153 x10^3/uL (140-400) Neutrophils (%) (Auto) 81 % (31-73) Lymphocytes (%) (Auto) 9 % (24-48) Monocytes (%) (Auto) 10 % (0-9) Eosinophils (%) (Auto) 0 % (0-3) Basophils (%) (Auto) 0 % (0-3) Neutrophils # (Auto) 6.7 x10^3uL (1.8-7.7) Lymphocytes # (Auto) 0.7 x10^3/uL (1.0-4.8) Monocytes # (Auto) 0.8 x10^3/uL (0.0-1.1) Eosinophils # (Auto) 0.0 x10^3/uL (0.0-0.7) Basophils # (Auto) 0.0 x10^3/uL (0.0-0.2) Sodium Level 142 mmol/L (136-145) Potassium Level 4.2 mmol/L (3.5-5.1) Chloride Level 104 mmol/L (98-107) Carbon Dioxide Level 24 mmol/L (21-32) Anion Gap 14 (6-14) Blood Urea Nitrogen 46 mg/dL (7-20) Creatinine 2.5 mg/dL (0.6-1.0) Estimated GFR (Cockcroft-Gault) 22.0 Glucose Level 157 mg/dL (70-99) Calcium Level 8.8 mg/dL (8.5-10.1) Magnesium Level 2.1 mg/dL (1.8-2.4) Troponin I Quantitative 0.183 ng/mL (0-0.055) AK-Arc-F-Type Natriuretic Peptide 52923 pg/mL (0-449) Lactic Acid Level 2.1 mmol/L (0.4-2.0) 1.5 mmol/L (0.4-2.0) Urine Collection Type U cath Urine Color Mariah Urine Clarity Cloudy Urine pH 5.0 Urine Specific [place] 1.025 Urine Protein >100 mg/dl (NEG-TRACE) Urine Glucose (UA) Neg mg/dL (NEG) Urine Ketones (Stick) Neg mg/dL (NEG) Urine Blood Large (NEG) Urine Nitrite Neg (NEG) Urine Bilirubin Neg (NEG) Urine Urobilinogen Dipstick 1 mg/dL (0.2 mg/dL) Urine Leukocyte Esterase Small (NEG) Urine RBC 1-2 /HPF (0-2) Urine WBC 11-20 /HPF (0-4) Urine Squamous Epithelial Cells Few /LPF Urine Amorphous Sediment Present /HPF Urine Bacteria Many /HPF (0-FEW) Urine Hyaline Casts Occ /HPF Urine Mucus Slight /LPF Urine Yeast Present /HPF Test 01/17/18 15:35 01/17/18 15:47 01/17/18 20:00 01/17/18 21:15 Sodium Level 142 mmol/L (136-145) Potassium Level 4.1 mmol/L (3.5-5.1) Chloride Level 105 mmol/L (98-107) Carbon Dioxide Level 27 mmol/L (21-32) Anion Gap 10 (6-14) Blood Urea Nitrogen 48 mg/dL (7-20) Creatinine 2.5 mg/dL (0.6-1.0) Estimated GFR (Cockcroft-Gault) 22.0 BUN/Creatinine Ratio 19 (6-20) Glucose Level 164 mg/dL (70-99) Calcium Level 8.7 mg/dL (8.5-10.1) Total Bilirubin 0.6 mg/dL (0.2-1.0) Aspartate Amino Transf (AST/SGOT) 17 U/L (15-37) Alanine Aminotransferase (ALT/SGPT) 17 U/L (14-59) Alkaline Phosphatase 82 U/L (46-116) Troponin I Quantitative 0.220 ng/mL (0-0.055) 0.273 ng/mL (0-0.055) Total Protein 6.1 g/dL (6.4-8.2) Albumin 2.5 g/dL (3.4-5.0) Albumin/Globulin Ratio 0.7 (1.0-1.7) Glucose (Fingerstick) 140 mg/dL (70-99) 202 mg/dL (70-99) Test 01/18/18 07:55 01/18/18 08:51 01/18/18 11:51 01/18/18 16:51 Glucose (Fingerstick) 202 mg/dL (70-99) 176 mg/dL (70-99) 351 mg/dL (70-99) White Blood Count 11.3 x10^3/uL (4.0-11.0) Red Blood Count 3.87 x10^6/uL (3.50-5.40) Hemoglobin 10.8 g/dL (12.0-15.5) Hematocrit 33.6 % (36.0-47.0) Mean Corpuscular Volume 87 fL (79-100) Mean Corpuscular Hemoglobin 28 pg (25-35) Mean Corpuscular Hemoglobin Concent 32 g/dL (31-37) Red Cell Distribution Width 18.2 % (11.5-14.5) Platelet Count 154 x10^3/uL (140-400) Neutrophils (%) (Auto) 82 % (31-73) Lymphocytes (%) (Auto) 9 % (24-48) Monocytes (%) (Auto) 9 % (0-9) Eosinophils (%) (Auto) 0 % (0-3) Basophils (%) (Auto) 0 % (0-3) Neutrophils # (Auto) 9.2 x10^3uL (1.8-7.7) Lymphocytes # (Auto) 1.0 x10^3/uL (1.0-4.8) Monocytes # (Auto) 1.0 x10^3/uL (0.0-1.1) Eosinophils # (Auto) 0.0 x10^3/uL (0.0-0.7) Basophils # (Auto) 0.0 x10^3/uL (0.0-0.2) Sodium Level 141 mmol/L (136-145) Potassium Level 4.0 mmol/L (3.5-5.1) Chloride Level 105 mmol/L (98-107) Carbon Dioxide Level 27 mmol/L (21-32) Anion Gap 9 (6-14) Blood Urea Nitrogen 49 mg/dL (7-20) Creatinine 2.5 mg/dL (0.6-1.0) Estimated GFR (Cockcroft-Gault) 22.0 BUN/Creatinine Ratio 20 (6-20) Glucose Level 208 mg/dL (70-99) Calcium Level 8.4 mg/dL (8.5-10.1) Total Bilirubin 0.4 mg/dL (0.2-1.0) Aspartate Amino Transf (AST/SGOT) 14 U/L (15-37) Alanine Aminotransferase (ALT/SGPT) 14 U/L (14-59) Alkaline Phosphatase 66 U/L (46-116) Total Protein 5.3 g/dL (6.4-8.2) Albumin 2.0 g/dL (3.4-5.0) Albumin/Globulin Ratio 0.6 (1.0-1.7) Test 01/18/18 19:52 01/19/18 05:44 01/19/18 07:22 Glucose (Fingerstick) 330 mg/dL (70-99) 250 mg/dL (70-99) White Blood Count 9.8 x10^3/uL (4.0-11.0) Red Blood Count 3.89 x10^6/uL (3.50-5.40) Hemoglobin 11.0 g/dL (12.0-15.5) Hematocrit 33.9 % (36.0-47.0) Mean Corpuscular Volume 87 fL (79-100) Mean Corpuscular Hemoglobin 28 pg (25-35) Mean Corpuscular Hemoglobin Concent 32 g/dL (31-37) Red Cell Distribution Width 18.3 % (11.5-14.5) Platelet Count 150 x10^3/uL (140-400) Sodium Level 140 mmol/L (136-145) Potassium Level 3.6 mmol/L (3.5-5.1) Chloride Level 106 mmol/L (98-107) Carbon Dioxide Level 27 mmol/L (21-32) Anion Gap 7 (6-14) Blood Urea Nitrogen 49 mg/dL (7-20) Creatinine 2.4 mg/dL (0.6-1.0) Estimated GFR (Cockcroft-Gault) 23.1 BUN/Creatinine Ratio 20 (6-20) Glucose Level 223 mg/dL (70-99) Calcium Level 8.1 mg/dL (8.5-10.1) Total Bilirubin 0.4 mg/dL (0.2-1.0) Aspartate Amino Transf (AST/SGOT) 11 U/L (15-37) Alanine Aminotransferase (ALT/SGPT) 13 U/L (14-59) Alkaline Phosphatase 60 U/L (46-116) Total Protein 5.2 g/dL (6.4-8.2) Albumin 1.9 g/dL (3.4-5.0) Albumin/Globulin Ratio 0.6 (1.0-1.7) Microbiology 01/17/18 Blood Culture - Preliminary, Resulted NO GROWTH AFTER 1 DAY 01/17/18 Urine Culture - Preliminary, Resulted 01/17/18 Urine Culture Result 1 (ANNAMARIA) - Preliminary, Resulted Medications Current Medications Lidocaine HCl 15 ml STK-MED ONCE .ROUTE ; Start 01/17/18 at 10:05; Stop at 10:06; Status DC Furosemide (Lasix) 40 mg 1X ONCE IVP Last administered on 01/17/18at 10:55; Start 01/17/18 at 10:45; Stop 01/17/18 at 10:46; Status DC Ceftriaxone Sodium 1 gm/ Sodium Chloride 50 ml @ 100 mls/hr 1X ONCE IV ; Start 01/17/18 at 10:30; Stop 01/17/18 at 10:59; Status UNV Ceftriaxone Sodium (Rocephin) 1 gm 1X ONCE IVP Last administered on 01/17/18at 11:36; Start 01/17/18 at 10:45; Stop 01/17/18 at 10:46; Status DC Piperacillin Sod/ Tazobactam Sod 2.25 gm/Sodium Chloride 50 ml @ 100 mls/hr Q8H IV Last administered on 01/19/18at 08:39; Start 01/17/18 at 16:00 Linezolid 300 ml @ 300 mls/hr Q12H IV Last administered on 01/19/18at 05:41; Start 01/17/18 at 17:00 Albuterol Sulfate (Ventolin) 2.5 mg RTQID NEB Last administered on 01/19/18at 05: 50; Start 01/17/18 at 20:00 Albuterol Sulfate (Ventolin) 2.5 mg STK-MED ONCE .ROUTE Last administered on at 18:01; Start 01/17/18 at 17:55; Stop 01/17/18 at 17:56; Status DC Sodium Chloride 1,000 ml @ 75 mls/hr [id number] IV Last administered on 01/19/18at 08:42; Start 01/18/18 at 13:30 Insulin Human Lispro (HumaLOG) 0-5 UNITS TIDWMEALS SQ Last administered on at 08:41; Start 01/18/18 at 17:00 Dextrose 12.5 gm PRN Q15MIN PRN IV SEE COMMENTS; Start 01/18/18 at 13:30 Lactobacillus Rhamnosus (Culturelle) 1 cap BID PO Last administered on at 08:38; Start 01/18/18 at 21:00 Active Scripts Active Reported Novolog Flexpen (Insulin Aspart) 100 Unit/1 Ml Insuln.pen 1 Unit SQ Coreg (Carvedilol) 25 Mg Tablet 1 Tab PO BID Systane Ultra 0.4-0.3% Eye Drp (Propylene Glycol/Peg 400) 10 Ml Drops 1 Drop EACHEYE BID [place] Thyroid (Thyroid,Pork) 60 Mg Tablet 1 Tab PO DAILY Albuterol Sulfate Conc Neb Soln (Albuterol Sulfate) 2.5 Mg/0.5 Ml Vial.neb 1 Vial NEB PRN TID PRN Tylenol (Acetaminophen) 325 Mg Tablet 1 Tab PO PRN TID Glimepiride 2 Mg Tablet 1 Tab PO DAILY LAST DOSE GIVEN: DATE: TODAY TIME: AM NEXT DOSE DUE: DATE: TOMORROW TIME: AM Furosemide 20 Mg Tablet 1 Tab PO DAILY LAST DOSE GIVEN: DATE: TODAY TIME: AM NEXT DOSE DUE: DATE: TOMORROW TIME: AM Vitamin D2 (Ergocalciferol (Vitamin D2)) 50,000 Unit Capsule 1 Cap PO WEEKLY RESTART ON YOUR REGULAR DAY Aspirin 325 Mg Tablet 1 Tab PO DAILY LAST DOSE GIVEN: DATE: TODAY TIME: AM NEXT DOSE DUE: DATE: TOMORROW TIME: AM Polyethylene Glycol 3350 2,500 Gm Powder 2,500 Gm MC PRN DAILY PRN LAST DOSE GIVEN: DATE: TODAY TIME: AM NEXT DOSE DUE: DATE: TOMORROW TIME: AM Vitals/I & O Vital Sign - Last 24 Hours 01/18/18 01/18/18 01/18/18 01/18/18 10:58 11:21 15:28 16:56 Temp 98.5 98.2 Pulse 70 77 Resp 20 20 B/P (MAP) 149/75 (99) 121/69 (86) Pulse Ox 92 95 94 O2 Delivery Room Air Nasal Cannula Nasal Cannula Room Air O2 Flow Rate 2.0 2.0 01/18/18 01/18/18 01/18/18 01/18/18 19:35 20:05 22:34 22:53 Temp 98.3 97.9 Pulse 74 88 Resp 20 22 B/P (MAP) 130/84 (99) 154/88 (110) Pulse Ox 98 94 100 O2 Delivery Nasal Cannula Nasal Cannula Room Air Nasal Cannula O2 Flow Rate 2.0 2.0 2.0 01/19/18 01/19/18 05:32 05:51 Temp 97.4 Pulse 67 Resp 20 B/P (MAP) 105/60 (75) Pulse Ox 98 100 O2 Delivery Nasal Cannula Nasal Cannula O2 Flow Rate 2.0 2.0 Intake and Output 01/18/18 01/18/18 01/19/18 15:00 23:00 07:00 Intake Total 655 ml 713 ml Output Total 100 ml 350 ml Balance 555 ml 363 ml HI [employer] January 19, 2018 09:14
[2018-01-19 10:20] VITALS: BP 129/53
[2018-01-19 14:43] VITALS: BP 138/65
[2018-01-19] MEDS ORDERED: DEXTROSE 50% 25 GM / 50ML DISP.SYRIN. IV PRN (17:30)
[2018-01-19] MEDS: methylPREDNISolone SOD SUCC PF 40 MG/ML VIAL. IV SCH ×2 (18:03→22:00)
[2018-01-19 18:53] VITALS: BP 108/58
[2018-01-19 19:01] VITALS: BP 108/58
[2018-01-19] MEDS: IPRATRPIUM/ALBUTEROL 0.5/2.5MG 3 ML NEBU. NEB SCH (20:33)
[2018-01-19] MEDS: INSULIN GLARGINE 300 UNITS/3 ML INSULN.PEN. SQ SCH (21:25)
[2018-01-19] MEDS ORDERED: methylPREDNISolone SOD SUCC PF 40 MG/ML VIAL. IV SCH (22:00)
[2018-01-19 23:40] VITALS: BP 159/88
--- NOTE | 2018-01-20 00:58 | PN ---
DATE: 01/19/2018 SUBJECTIVE: The patient is resting, slightly propped up in bed, in no apparent distress. She denied any chest pain, shortness of breath; however, nursing staff stated that she has been having recurrent bouts of cough. OBJECTIVE: GENERAL: On examining her, she was somewhat pale, but no jaundice, cyanosis, lymphadenopathy or thyromegaly. No jugular venous distension. No limb edema. VITAL SIGNS: Her heart rate was 78, blood pressure was 138/65, temperature was 98.1, respiratory rate 20, and oxygen saturation was 96% on 1 liter of oxygen and in fact, was 97% on room air. HEENT: Normocephalic, atraumatic. NECK: Supple. HEART: Showed normal first and second heart sounds with no gallop, rub or murmur. CHEST: Shows central trachea, equal bilateral chest expansion, air entry, vesicular sounds with bilateral scattered rhonchi. I could not appreciate any crepitation. ABDOMEN: Distended, soft, nontender. NEUROLOGIC: The patient is demented, but without any obvious lateralizing signs. All cranial nerves are intact. He moves extremities without difficulty, although she is mostly bedbound, chair bound. Her intake over the last 24 hours was 1368, output was 450. LABORATORY DATA: As of this morning, her white cell count is 9800, hemoglobin 11, hematocrit 33, MCV 87, and platelet count 250,000. Her chemistry showed a serum sodium of 140, potassium 3.6, chloride 106, bicarbonate 27, anion gap of 7, BUN 49, creatinine 2.4, estimated GFR was 23 mL per minute. Her glucose was slightly high in the 200-300. Calcium was 8.1. Total bilirubin, AST, ALT, alkaline phosphatase were normal. Total protein was 5.2, albumin was 1.9. Urinalysis was essentially unremarkable. Her chest x-ray done yesterday showed that she has a right base infiltrate. Repeat chest x-ray done, but was not read yet by the radiologist. ASSESSMENT: The patient has right lower lobe pneumonia. She seemed to be extremely wheezy this afternoon and I am not sure if she has COPD; however, I started on DuoNeb 4 times a day and albuterol every 2 hours as needed, started also Solu-Medrol. We will continue with the gentle rehydration, continue with Zosyn and Zyvox. I will repeat all her lab works tomorrow. SERGE HORNE MD DR: TAYLOR/ugo JOB#: [id number] / [id number]
[2018-01-20] MEDS: ALBUTEROL SULFATE 2.5 MG/3 ML NEBU. NEB SCH ×8 (02:00→15:53)
[2018-01-20] MEDS: PIPERACILLIN/TAZOBACTAM 2.25 GM in IV NORMAL SALINE 50ML 50 ML IV SCH ×4 (02:04→23:59)
[2018-01-20] MEDS: IPRATRPIUM/ALBUTEROL 0.5/2.5MG 3 ML NEBU. NEB SCH ×4 (05:36→21:04)
[2018-01-20] MEDS: IV NORMAL SALINE 1,000ML 1,000 ML IV SCH (05:41)
[2018-01-20] MEDS: methylPREDNISolone SOD SUCC PF 40 MG/ML VIAL. IV SCH ×3 (05:48→21:41)
[2018-01-20 06:10] VITALS: BP 162/78
[2018-01-20 06:27] LABS: HEMATOCRIT 34.6 % (36.0-47.0); HEMOGLOBIN 11.2 g/dL (12.0-15.5); RED BLOOD COUNT 3.99 x10^6/uL (3.50-5.40); RED CELL DISTRIBUTION WIDTH 17.6 % (11.5-14.5); WHITE BLOOD COUNT 8.2 x10^3/uL (4.0-11.0)
[2018-01-20 06:33] LABS: ALBUMIN 1.8 g/dL (3.4-5.0); ALBUMIN/GLOBULIN RATIO 0.5 (1.0-1.7); CALCIUM 8.1 mg/dL (8.5-10.1); CREATININE 2.2 mg/dL (0.6-1.0); GFR 25.5; POTASSIUM 3.7 mmol/L (3.5-5.1); TOTAL BILIRUBIN 0.3 mg/dL (0.2-1.0); TOTAL PROTEIN 5.2 g/dL (6.4-8.2)
--- NOTE | 2018-01-20 07:44 | RAD ---
Portable chest, 01/19/2018: History: Wheezing Comparison is made to a study from 01/17/2018. The patient is rotated to the left. 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 The heart is at the upper limits of normal in size. There is calcific plaquing of the aorta. The left chest remains clear. There is increasing opacity in the right lower chest suggesting pleural fluid and underlying atelectasis/infiltrate. There is no evidence of pneumothorax. IMPRESSION: Worsening right lower chest opacity compatible with pleural fluid and underlying atelectasis/infiltrate.
[2018-01-20] MEDS ORDERED: INSULIN LISPRO 300 UNITS/3 ML INSULN.PEN. SQ SCH (08:00)
[2018-01-20] MEDS: LACTOBACILLUS RHAMNOSUS GG 1 CAPSULE. PO SCH ×2 (08:10→21:40)
[2018-01-20] MEDS: INSULIN LISPRO 300 UNITS/3 ML INSULN.PEN. SQ SCH ×3 (08:17→17:51)
[2018-01-20 10:45] VITALS: BP 146/76
--- NOTE | 2018-01-20 13:27 | PDOC ---
PROGRESS NOTES Diagnosis Problem Problems Medical Problems: (1) Acute CHF Status: Acute (2) Wtjwz-mt-nagdqvs kidney injury Status: Acute (3) Elevated troponin Status: Acute (4) Pneumonia Status: Acute Assessment Problems Medical Problems: (1) Acute CHF Status: Acute (2) Nmjos-rj-rzrhenq kidney injury Status: Acute (3) Elevated troponin Status: Acute (4) Pneumonia Status: Acute 1. acute on chronic systolic HF - EF 40%. She does not appear to be volume overloaded at this time. PHTN likely contributing factor for elevated BNP. Diuretics remain on hold. 2. PNA - Tx per PCP 3. mild NSTEMI - angina free. trop elevation ~ equal to last month admission, likely demand mediated. continue medical mgmt at this time due to age and comorbidities. 4. 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 2.2 today 5. hypertension - controlled, resume home medications 6. dysphagia - swallow eval pending, as per PCP 7. PAD - recent thrombectomy- medical mgmt with resuming home medications 8. dementia, baseline Problems: Subjective no new complaints Objective Vital Signs Date Time Temp Pulse Resp B/P (MAP) Pulse Ox O2 Delivery O2 Flow Rate FiO2 01/20/18 10:45 97.5 62 18 146/76 (99) 93 Nasal Cannula 1.0 Intake and Output 01/20/18 07:00 Intake Total 2314 ml Output Total 400 ml Balance 1914 ml Intake Oral 720 ml IV Total 1594 ml Output Urine Total 400 ml # Voids 1 # Bowel Movements 2 Abdomen: Normal bowel sounds, Soft Heart: Regular rate, Normal S1, Normal S2 Extremities: Other (+edema) General: Alert, Cooperative, No acute distress Lungs: Other (decreased bases bilaterally) Neuro: Normal speech Psych/Mental Status: Mood NL Review of Relevant I have reviewed the following items holger (where applicable) has been applied. Labs Laboratory Tests Test 01/18/18 16:51 01/18/18 19:52 01/19/18 05:44 01/19/18 07:22 Glucose (Fingerstick) 351 mg/dL (70-99) 330 mg/dL (70-99) 250 mg/dL (70-99) White Blood Count 9.8 x10^3/uL (4.0-11.0) Red Blood Count 3.89 x10^6/uL (3.50-5.40) Hemoglobin 11.0 g/dL (12.0-15.5) Hematocrit 33.9 % (36.0-47.0) Mean Corpuscular Volume 87 fL (79-100) Mean Corpuscular Hemoglobin 28 pg (25-35) Mean Corpuscular Hemoglobin Concent 32 g/dL (31-37) Red Cell Distribution Width 18.3 % (11.5-14.5) Platelet Count 150 x10^3/uL (140-400) Sodium Level 140 mmol/L (136-145) Potassium Level 3.6 mmol/L (3.5-5.1) Chloride Level 106 mmol/L (98-107) Carbon Dioxide Level 27 mmol/L (21-32) Anion Gap 7 (6-14) Blood Urea Nitrogen 49 mg/dL (7-20) Creatinine 2.4 mg/dL (0.6-1.0) Estimated GFR (Cockcroft-Gault) 23.1 BUN/Creatinine Ratio 20 (6-20) Glucose Level 223 mg/dL (70-99) Calcium Level 8.1 mg/dL (8.5-10.1) Total Bilirubin 0.4 mg/dL (0.2-1.0) Aspartate Amino Transf (AST/SGOT) 11 U/L (15-37) Alanine Aminotransferase (ALT/SGPT) 13 U/L (14-59) Alkaline Phosphatase 60 U/L (46-116) Total Protein 5.2 g/dL (6.4-8.2) Albumin 1.9 g/dL (3.4-5.0) Albumin/Globulin Ratio 0.6 (1.0-1.7) Test 01/19/18 11:12 01/19/18 16:33 01/19/18 21:15 01/20/18 05:58 Glucose (Fingerstick) 324 mg/dL (70-99) 265 mg/dL (70-99) 292 mg/dL (70-99) White Blood Count 8.2 x10^3/uL (4.0-11.0) Red Blood Count 3.99 x10^6/uL (3.50-5.40) Hemoglobin 11.2 g/dL (12.0-15.5) Hematocrit 34.6 % (36.0-47.0) Mean Corpuscular Volume 87 fL (79-100) Mean Corpuscular Hemoglobin 28 pg (25-35) Mean Corpuscular Hemoglobin Concent 33 g/dL (31-37) Red Cell Distribution Width 17.6 % (11.5-14.5) Platelet Count 147 x10^3/uL (140-400) Sodium Level 140 mmol/L (136-145) Potassium Level 3.7 mmol/L (3.5-5.1) Chloride Level 106 mmol/L (98-107) Carbon Dioxide Level 24 mmol/L (21-32) Anion Gap 10 (6-14) Blood Urea Nitrogen 51 mg/dL (7-20) Creatinine 2.2 mg/dL (0.6-1.0) Estimated GFR (Cockcroft-Gault) 25.5 BUN/Creatinine Ratio 23 (6-20) Glucose Level 290 mg/dL (70-99) Calcium Level 8.1 mg/dL (8.5-10.1) Total Bilirubin 0.3 mg/dL (0.2-1.0) Aspartate Amino Transf (AST/SGOT) 13 U/L (15-37) Alanine Aminotransferase (ALT/SGPT) 14 U/L (14-59) Alkaline Phosphatase 58 U/L (46-116) Total Protein 5.2 g/dL (6.4-8.2) Albumin 1.8 g/dL (3.4-5.0) Albumin/Globulin Ratio 0.5 (1.0-1.7) Test 01/20/18 07:38 01/20/18 11:40 Glucose (Fingerstick) 263 mg/dL (70-99) 329 mg/dL (70-99) Microbiology 01/17/18 Blood Culture - Preliminary, Resulted NO GROWTH AFTER 3 DAYS 01/17/18 Urine Culture - Final, Complete 01/17/18 Urine Culture Result 1 (ANNAMARIA) - Final, Complete Medications Current Medications Lidocaine HCl 15 ml STK-MED ONCE .ROUTE ; Start 01/17/18 at 10:05; Stop at 10:06; Status DC Furosemide (Lasix) 40 mg 1X ONCE IVP Last administered on 01/17/18at 10:55; Start 01/17/18 at 10:45; Stop 01/17/18 at 10:46; Status DC Ceftriaxone Sodium 1 gm/ Sodium Chloride 50 ml @ 100 mls/hr 1X ONCE IV ; Start 01/17/18 at 10:30; Stop 01/17/18 at 10:59; Status UNV Ceftriaxone Sodium (Rocephin) 1 gm 1X ONCE IVP Last administered on 01/17/18at 11:36; Start 01/17/18 at 10:45; Stop 01/17/18 at 10:46; Status DC Piperacillin Sod/ Tazobactam Sod 2.25 gm/Sodium Chloride 50 ml @ 100 mls/hr Q8H IV Last administered on 01/20/18at 08:11; Start 01/17/18 at 16:00 Linezolid 300 ml @ 300 mls/hr Q12H IV Last administered on 01/20/18at 04:03; Start 01/17/18 at 17:00 Albuterol Sulfate (Ventolin) 2.5 mg RTQID NEB Last administered on 01/19/18at 16: 32; Start 01/17/18 at 20:00; Stop 01/19/18 at 17:23; Status DC Albuterol Sulfate (Ventolin) 2.5 mg STK-MED ONCE .ROUTE Last administered on at 18:01; Start 01/17/18 at 17:55; Stop 01/17/18 at 17:56; Status DC Sodium Chloride 1,000 ml @ 75 mls/hr [id number] IV Last administered on 01/20/18at 05:41; Start 01/18/18 at 13:30 Insulin Human Lispro (HumaLOG) 0-5 UNITS TIDWMEALS SQ Last administered on at 12:35; Start 01/18/18 at 17:00; Stop 01/19/18 at 17:30; Status DC Dextrose 12.5 gm PRN Q15MIN PRN IV SEE COMMENTS; Start 01/18/18 at 13:30; Status Cancel Lactobacillus Rhamnosus (Culturelle) 1 cap BID PO Last administered on at 08:10; Start 01/18/18 at 21:00 Albuterol Sulfate (Ventolin) 2.5 mg Q2H NEB Last administered on 01/20/18 04:00 ; Start 01/19/18 at 18:00 Insulin Human Lispro (HumaLOG) 0-9 UNITS TIDWMEALS SQ ; Start 01/20/18 at 08:00; Stop 01/20/18 at 08:00; Status DC Dextrose 12.5 gm PRN Q15MIN PRN IV SEE COMMENTS; Start 01/19/18 at 17:30 Insulin Glargine (Lantus) 10 units QHS SQ Last administered on 01/19/18at 21:25; Start 01/19/18 at 21:00 Methylprednisolone Sodium Succinate (SOLU-Medrol 40MG VIAL) 40 mg Q8HRS IV ; Start 01/19/18 at 22:00; Stop 01/19/18 at 22:00; Status DC Albuterol/ Ipratropium (Duoneb) 3 ml RTQID NEB Last administered on 01/20/18at 09 :37; Start 01/19/18 at 20:00 Insulin Human Lispro (HumaLOG) 0-9 UNITS TIDWMEALS SQ Last administered on at 12:07; Start 01/19/18 at 17:45 Methylprednisolone Sodium Succinate (SOLU-Medrol 40MG VIAL) 40 mg Q8HRS IV Last administered on 01/20/18at 05:48; Start 01/19/18 at 18:00 Active Scripts Active Reported Novolog Flexpen (Insulin Aspart) 100 Unit/1 Ml Insuln.pen 1 Unit SQ Coreg (Carvedilol) 25 Mg Tablet 1 Tab PO BID Systane Ultra 0.4-0.3% Eye Drp (Propylene Glycol/Peg 400) 10 Ml Drops 1 Drop EACHEYE BID [place] Thyroid (Thyroid,Pork) 60 Mg Tablet 1 Tab PO DAILY Albuterol Sulfate Conc Neb Soln (Albuterol Sulfate) 2.5 Mg/0.5 Ml Vial.neb 1 Vial NEB PRN TID PRN Tylenol (Acetaminophen) 325 Mg Tablet 1 Tab PO PRN TID Glimepiride 2 Mg Tablet 1 Tab PO DAILY LAST DOSE GIVEN: DATE: TODAY TIME: AM NEXT DOSE DUE: DATE: TOMORROW TIME: AM Furosemide 20 Mg Tablet 1 Tab PO DAILY LAST DOSE GIVEN: DATE: TODAY TIME: AM NEXT DOSE DUE: DATE: TOMORROW TIME: AM Vitamin D2 (Ergocalciferol (Vitamin D2)) 50,000 Unit Capsule 1 Cap PO WEEKLY RESTART ON YOUR REGULAR DAY Aspirin 325 Mg Tablet 1 Tab PO DAILY LAST DOSE GIVEN: DATE: TODAY TIME: AM NEXT DOSE DUE: DATE: TOMORROW TIME: AM Polyethylene Glycol 3350 2,500 Gm Powder 2,500 Gm MC PRN DAILY PRN LAST DOSE GIVEN: DATE: TODAY TIME: AM NEXT DOSE DUE: DATE: TOMORROW TIME: AM Vitals/I & O Vital Sign - Last 24 Hours 01/19/18 01/19/18 01/19/18 01/19/18 14:43 16:32 18:53 19:01 Temp 98.1 98.1 98.1 Pulse 78 81 81 Resp 20 18 B/P (MAP) 138/65 (89) 108/58 (75) 108/58 (75) Pulse Ox 96 97 95 95 O2 Delivery Nasal Cannula Room Air Nasal Cannula Nasal Cannula O2 Flow Rate 1.0 2.0 2.0 01/19/18 01/19/18 01/20/18 01/20/18 19:35 23:40 05:13 06:10 Temp 98.3 97.6 Pulse 72 66 Resp 16 16 B/P (MAP) 159/88 (111) 162/78 (106) Pulse Ox 98 95 98 O2 Delivery Nasal Cannula Nasal Cannula Room Air Nasal Cannula O2 Flow Rate 2.0 1.5 2.0 01/20/18 01/20/18 01/20/18 08:00 09:38 10:45 Temp 97.5 Pulse 62 Resp 18 B/P (MAP) 146/76 (99) Pulse Ox 95 93 O2 Delivery Nasal Cannula Room Air Nasal Cannula O2 Flow Rate 1.0 1.0 Intake and Output 01/19/18 01/19/18 01/20/18 15:00 23:00 07:00 Intake Total 1067 ml 897 ml 350 ml Output Total 300 ml 100 ml Balance 1067 ml 597 ml 250 ml HI [employer] January 20, 2018 13:27
[2018-01-20 15:56] VITALS: BP 180/90
--- NOTE | 2018-01-20 17:20 | RAD ---
CT chest without contrast History:cough, short of breath. Technique: No intravenous contrast per request. Multiplanar reformatted images were obtained. Comparison: Chest x-ray from the previous day. No prior CT scan. Exposure: One or more of the following individualized dose reduction techniques were utilized for this examination: 1. Automated exposure control 2. Adjustment of the mA and/or kV according to patient size 3. Use of iterative reconstruction technique. Findings: Motion degradation on the images. Vascular structures: Limited exam without contrast. Aortic calcifications and ectasia, without evidence of aneurysm. Lymph nodes:No significant enlargement Thyroid gland:Visualized aspect is unremarkable. Heart: Mildly enlarged. Coronary artery calcifications. Pacemaker identified. Pleural spaces: Moderate right pleural effusion. Trace left effusion. Lungs: Mild atelectasis and/or infiltrate in the dependent right lower lobe and right upper lobe. Mild atelectasis in the dependent left lung. Mild atelectasis or groundglass infiltrate in the anterior inferior left upper lobe. Trachea and central airways: Patent Bones: Degenerative spondylosis. Upper abdomen: Slices obtained through the upper most abdomen are limited by the noncontrast technique. No obvious acute findings. Impression: 1. Moderate right pleural effusion, trace left pleural effusion. 2. Infiltrates and/or atelectasis in both lungs, much more so on the right. Electronically signed by: Everton López MD (01/20/2018 5:17 PM) [facility]
[2018-01-20] MEDS: CARVEDILOL 12.5 MG TABLET PO SCH (17:48)
[2018-01-20] MEDS: LINEZOLID 600 MG TABLET PO SCH (18:08)
[2018-01-20 19:48] VITALS: BP 165/79
[2018-01-20] MEDS ORDERED: ALBUTEROL SULFATE 2.5 MG/3 ML NEBU. NEB PRN (20:00)
[2018-01-20] MEDS: INSULIN GLARGINE 300 UNITS/3 ML INSULN.PEN. SQ SCH (21:47)
--- NOTE | 2018-01-20 22:29 | PN ---
DATE: 01/20/2018 NO DICTATION. SERGE HORNE MD DR: Bhargavi JOB#: [id number] / [id number]
--- NOTE | 2018-01-20 22:50 | PN ---
DATE: 01/20/2018 SUBJECTIVE: The patient is resting slightly propped up in her chair, slightly tachypneic, continued to have wheezing, although less than yesterday. She has been up and about, walking with physical therapy. Her chest x-ray again stating that she has pneumonia versus pleural effusion. OBJECTIVE: GENERAL: When I examined her this afternoon, she looked slightly more tachypneic, pale, but no jaundice, cyanosis, lymphadenopathy or thyromegaly. No jugular venous distension. No lower limb edema. VITAL SIGNS: Her heart rate was 62, blood pressure 146/76, temperature was 97.5, respiratory rate was 18 and oxygen saturation was 93% on 1 liter of oxygen. HEAD, EYES, EARS, NOSE AND THROAT: Showed normocephalic, atraumatic. NECK: Supple. HEART: Showed normal first and second sounds. No gallop, rub or murmur. CHEST: Clear to auscultation. No crepitation or rhonchi. Chest showed central trachea, equal bilateral expansion, air entry, vesicular breath sounds, with diffuse rhonchi and crepitation, mostly in the left side, posteriorly. ABDOMEN: Distended, soft, nontender. NEUROLOGIC: She was demented, but without any obvious lateralizing sign. All her cranial nerves intact. She moves extremities without difficulty. She ambulates with standby assist. Her intake over the last 24 hours was 2300, output was 400. LABORATORY DATA: Showed a white cell count of 8200, hemoglobin 11, hematocrit 34, MCV 87 and platelet count 247,000. Her chemistry showed a serum sodium of 140, potassium 3.7, chloride 106, bicarbonate 24, anion gap of 10, BUN 51, creatinine 2.2, estimated GFR was 25 mL per minute. Her glucose was 290, calcium was 8.1. Total bilirubin, AST, ALT, alkaline phosphatase were normal. Total protein was 5.2, albumin 1.8. Urinalysis was unremarkable. ASSESSMENT: 1. Acute on chronic systolic congestive heart failure, ejection fraction of 40%. She does not appear to be volume overloaded at this time, pulmonary hypertension likely contributing factor for elevated BNP. 2. Pneumonia for which she is currently on Zosyn and Zyvox. 3. Mild non-ST segment elevation myocardial infarction, angina free. Troponin elevation equal to the last month admission, likely demand ischemia. 4. Acute on chronic kidney injury, improving. Creatinine is down to 2.2. 5. Hypertension, controlled. 6. Dysphagia. She was evaluated by the speech therapy and she is now on a pureed/soft diet with thin liquids. 7. Peripheral arterial disease with recent thrombectomy, medical management. 8. Dementia, at baseline. PLAN: Given that she continued to be very wheezy, I have arranged for her to have a CT scan of the chest without contrast to make sure that it is okay for us to continue with IV fluid as her kidney function is improving, although she continued to be wheezy. SERGE HORNE MD DR: TAYLOR/ugo JOB#: [id number] / [id number]
[2018-01-20 23:05] VITALS: BP 132/70
[2018-01-21] MEDS: IPRATRPIUM/ALBUTEROL 0.5/2.5MG 3 ML NEBU. NEB SCH ×3 (05:41→16:01)
[2018-01-21] MEDS: LINEZOLID 600 MG TABLET PO SCH (05:43)
[2018-01-21] MEDS: methylPREDNISolone SOD SUCC PF 40 MG/ML VIAL. IV SCH ×2 (05:44→13:56)
[2018-01-21 05:47] VITALS: BP 153/71
[2018-01-21 06:43] LABS: CALCIUM 8.2 mg/dL (8.5-10.1); CREATININE 2.2 mg/dL (0.6-1.0); GFR 25.5; POTASSIUM 3.9 mmol/L (3.5-5.1)
[2018-01-21] MEDS: PIPERACILLIN/TAZOBACTAM 2.25 GM in IV NORMAL SALINE 50ML 50 ML IV SCH (08:09)
[2018-01-21] MEDS: LACTOBACILLUS RHAMNOSUS GG 1 CAPSULE. PO SCH (08:10)
[2018-01-21] MEDS: CARVEDILOL 12.5 MG TABLET PO SCH (08:10)
[2018-01-21] MEDS: INSULIN LISPRO 300 UNITS/3 ML INSULN.PEN. SQ SCH ×2 (08:14→12:34)
--- NOTE | 2018-01-21 08:52 | CARD ---
MR#: [id number] Account#: Date of Study: 01/18/2018 Ordering Physician: Som: OFE Bauer APPROVED REPORT EXAM: Two-dimensional and M-mode echocardiogram with Doppler and color Doppler. Other Information Quality : Average INDICATION Altered Mental Status Assess LVF 2D DIMENSIONS Left Atrium(2D)4.5 (1.6-4.0cm)IVSd2.0 (0.7-1.1cm) Aortic Root(2D)2.5 (2.0-3.7cm)LVDd3.6 (3.9-5.9cm) LVOT Diameter2.2 (1.8-2.4cm)IVSs1.5 (0.8-1.2cm) LVDs2.6 (2.5-4.0cm)FS (%) 18.0 % SV31.1 mlLVEF(%)40.0 (>50%) Aortic Valve AoV Peak Nathan.106.8cm/Ursula Peak GR.4.6mmHg LVOT Peak Nathan.85.1cm/sAVA (VMAX)3.07cm2 Mitral Valve MV E Hurwozph11.2cm/sMV DECEL [id number] MV A Klndumxb16.7cm/sE/A Ratio0.8 Tricuspid Valve TR P. Vaccgfoy085fi/sRAP [id number] TR Peak Gr.44tfBpZONZ11orCi LEFT VENTRICLE The left ventricle is normal size. There is severe concentric hypertrophy probably related to hyperte nsive heart disease. The systolic function is mildly impaired. The Ejection Fraction is 40-45%. There is global hypokinesis of the left ventricle. RIGHT VENTRICLE The right ventricle is normal size. There is normal right ventricular wall thickness. The right ventr icular systolic function is normal. There is a pacemaker lead in the right ventricle. ATRIA The left atrium is moderately dilated. The right atrium is mildly dilated. There is pacemaker lead se en in the right atrium. The interatrial septum is intact with no evidence for an atrial septal defect or patent foramen ovale as noted on 2-D or Doppler imaging. AORTIC VALVE The aortic valve is not well visualized. The aortic valve is trileaflet. The aortic valve is mildly t o moderately calcified. Doppler and Color Flow revealed no significant aortic regurgitation. There is no significant aortic valvular stenosis. MITRAL VALVE Mitral annular calcification is borderline. There is no evidence of mitral valve prolapse. There is n o mitral valve stenosis. Doppler and Color Flow revealed no mitral valve regurgitation noted. TRICUSPID VALVE The tricuspid valve is normal in structure and function. Doppler and Color Flow revealed mild to mode rate tricuspid regurgitation. There is moderate pulmonary hypertension. The PASP is 62mmHg. There is no tricuspid valve stenosis. PULMONIC VALVE The pulmonic valve is not well visualized. Doppler and Color Flow revealed mild pulmonic valvular reg urgitation. There is no pulmonic valvular stenosis. GREAT VESSELS The aortic root is normal in size. Dilated IVC with poor inspiration collapse is consistent with elev ated right atrial pressure. PERICARDIAL EFFUSION There is no pleural effusion. There is no evidence of significant pericardial effusion. Critical Notification Critical Value: No <Conclusion> The systolic function is mildly impaired. The Ejection Fraction is 40-45%. There is global hypokinesis of the left ventricle. There is severe concentric hypertrophy probably related to hypertensive heart disease. There is a pacemaker lead in the right ventricle. Doppler and Color Flow revealed mild to moderate tricuspid regurgitation. There is moderate pulmonary hypertension. The PASP is 62mmHg. Signed by : Maximo Hernandez, Electronically Approved : 01/19/2018 08:46:51
[2018-01-21] MEDS ORDERED: ASPIRIN 325 MG TABLET PO SCH (09:00)
[2018-01-21 10:47] VITALS: BP 139/76
--- NOTE | 2018-01-21 11:49 | PDOC ---
PROGRESS NOTES Diagnosis Problem Problems Medical Problems: (1) Acute CHF Status: Acute (2) Kvkik-jm-ssuuwvu kidney injury Status: Acute (3) Elevated troponin Status: Acute (4) Pneumonia Status: Acute Assessment Problems Medical Problems: (1) Acute CHF Status: Acute (2) Kdhep-nn-axhqvux kidney injury Status: Acute (3) Elevated troponin Status: Acute (4) Pneumonia Status: Acute 1. chronic systolic HF - EF 40%. - She does not appear to be volume overloaded. PHTN likely contributing factor for elevated BNP. Diuretics remain on hold. Monitor with IVF. 2. PNA - Tx per PCP 3. mild NSTEMI - angina free. trop elevation ~ equal to last month admission, likely demand mediated. continue medical mgmt at this time due to age and comorbidities. 4. 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 2.2 today 5. hypertension - controlled, home medications resumed yesterday. Problems: Subjective no new complaints Objective Vital Signs Date Time Temp Pulse Resp B/P (MAP) Pulse Ox O2 Delivery O2 Flow Rate FiO2 01/21/18 10:47 62 24 139/76 (97) 100 Nasal Cannula 1.0 01/21/18 05:47 97.6 Intake and Output 01/21/18 07:00 Intake Total 3628.32 ml Output Total 400 ml Balance 3228.32 ml Intake Oral 600 ml IV Total 3028.32 ml Output Urine Total 400 ml # Voids 2 # Bowel Movements 3 Abdomen: Normal bowel sounds, Soft Heart: Normal S1, Normal S2 Extremities: Other (mild edema) General: Alert, Cooperative, No acute distress Lungs: Other (decreased bases) Neuro: Normal speech Psych/Mental Status: Mood NL Review of Relevant I have reviewed the following items holger (where applicable) has been applied. Labs Laboratory Tests Test 01/19/18 16:33 01/19/18 21:15 01/20/18 05:58 01/20/18 07:38 Glucose (Fingerstick) 265 mg/dL (70-99) 292 mg/dL (70-99) 263 mg/dL (70-99) White Blood Count 8.2 x10^3/uL (4.0-11.0) Red Blood Count 3.99 x10^6/uL (3.50-5.40) Hemoglobin 11.2 g/dL (12.0-15.5) Hematocrit 34.6 % (36.0-47.0) Mean Corpuscular Volume 87 fL (79-100) Mean Corpuscular Hemoglobin 28 pg (25-35) Mean Corpuscular Hemoglobin Concent 33 g/dL (31-37) Red Cell Distribution Width 17.6 % (11.5-14.5) Platelet Count 147 x10^3/uL (140-400) Sodium Level 140 mmol/L (136-145) Potassium Level 3.7 mmol/L (3.5-5.1) Chloride Level 106 mmol/L (98-107) Carbon Dioxide Level 24 mmol/L (21-32) Anion Gap 10 (6-14) Blood Urea Nitrogen 51 mg/dL (7-20) Creatinine 2.2 mg/dL (0.6-1.0) Estimated GFR (Cockcroft-Gault) 25.5 BUN/Creatinine Ratio 23 (6-20) Glucose Level 290 mg/dL (70-99) Calcium Level 8.1 mg/dL (8.5-10.1) Total Bilirubin 0.3 mg/dL (0.2-1.0) Aspartate Amino Transf (AST/SGOT) 13 U/L (15-37) Alanine Aminotransferase (ALT/SGPT) 14 U/L (14-59) Alkaline Phosphatase 58 U/L (46-116) Total Protein 5.2 g/dL (6.4-8.2) Albumin 1.8 g/dL (3.4-5.0) Albumin/Globulin Ratio 0.5 (1.0-1.7) Test 01/20/18 11:40 01/20/18 17:13 01/20/18 20:41 01/21/18 06:06 Glucose (Fingerstick) 329 mg/dL (70-99) 373 mg/dL (70-99) 306 mg/dL (70-99) Sodium Level 142 mmol/L (136-145) Potassium Level 3.9 mmol/L (3.5-5.1) Chloride Level 108 mmol/L (98-107) Carbon Dioxide Level 26 mmol/L (21-32) Anion Gap 8 (6-14) Blood Urea Nitrogen 54 mg/dL (7-20) Creatinine 2.2 mg/dL (0.6-1.0) Estimated GFR (Cockcroft-Gault) 25.5 Glucose Level 233 mg/dL (70-99) Calcium Level 8.2 mg/dL (8.5-10.1) Test 01/21/18 07:44 Glucose (Fingerstick) 199 mg/dL (70-99) Microbiology 01/17/18 Blood Culture - Preliminary, Resulted NO GROWTH AFTER 3 DAYS 01/17/18 Urine Culture - Final, Complete 01/17/18 Urine Culture Result 1 (ANNAMARIA) - Final, Complete Medications Current Medications Lidocaine HCl 15 ml STK-MED ONCE .ROUTE ; Start 01/17/18 at 10:05; Stop at 10:06; Status DC Furosemide (Lasix) 40 mg 1X ONCE IVP Last administered on 01/17/18at 10:55; Start 01/17/18 at 10:45; Stop 01/17/18 at 10:46; Status DC Ceftriaxone Sodium 1 gm/ Sodium Chloride 50 ml @ 100 mls/hr 1X ONCE IV ; Start 01/17/18 at 10:30; Stop 01/17/18 at 10:59; Status UNV Ceftriaxone Sodium (Rocephin) 1 gm 1X ONCE IVP Last administered on 01/17/18at 11:36; Start 01/17/18 at 10:45; Stop 01/17/18 at 10:46; Status DC Piperacillin Sod/ Tazobactam Sod 2.25 gm/Sodium Chloride 50 ml @ 100 mls/hr Q8H IV Last administered on 01/21/18at 08:09; Start 01/17/18 at 16:00 Linezolid 300 ml @ 300 mls/hr Q12H IV Last administered on 01/20/18at 04:03; Start 01/17/18 at 17:00; Stop 01/20/18 at 14:22; Status DC Albuterol Sulfate (Ventolin) 2.5 mg RTQID NEB Last administered on 01/19/18at 16: 32; Start 01/17/18 at 20:00; Stop 01/19/18 at 17:23; Status DC Albuterol Sulfate (Ventolin) 2.5 mg STK-MED ONCE .ROUTE Last administered on at 18:01; Start 01/17/18 at 17:55; Stop 01/17/18 at 17:56; Status DC Sodium Chloride 1,000 ml @ 75 mls/hr [id number] IV Last administered on 01/20/18at 05:41; Start 01/18/18 at 13:30; Stop 01/20/18 at 18:10; Status DC Insulin Human Lispro (HumaLOG) 0-5 UNITS TIDWMEALS SQ Last administered on at 12:35; Start 01/18/18 at 17:00; Stop 01/19/18 at 17:30; Status DC Dextrose 12.5 gm PRN Q15MIN PRN IV SEE COMMENTS; Start 01/18/18 at 13:30; Status Cancel Lactobacillus Rhamnosus (Culturelle) 1 cap BID PO Last administered on at 08:10; Start 01/18/18 at 21:00 Albuterol Sulfate (Ventolin) 2.5 mg Q2H NEB Last administered on 01/20/18at 04:00 ; Start 01/19/18 at 18:00; Stop 01/20/18 at 18:52; Status DC Insulin Human Lispro (HumaLOG) 0-9 UNITS TIDWMEALS SQ ; Start 01/20/18 at 08:00; Stop 01/20/18 at 08:00; Status DC Dextrose 12.5 gm PRN Q15MIN PRN IV SEE COMMENTS; Start 01/19/18 at 17:30 Insulin Glargine (Lantus) 10 units QHS SQ Last administered on 01/20/18at 21:47; Start 01/19/18 at 21:00 Methylprednisolone Sodium Succinate (SOLU-Medrol 40MG VIAL) 40 mg Q8HRS IV ; Start 01/19/18 at 22:00; Stop 01/19/18 at 22:00; Status DC Albuterol/ Ipratropium (Duoneb) 3 ml RTQID NEB Last administered on 01/21/18at 10 :32; Start 01/19/18 at 20:00 Insulin Human Lispro (HumaLOG) 0-9 UNITS TIDWMEALS SQ Last administered on at 08:14; Start 01/19/18 at 17:45 Methylprednisolone Sodium Succinate (SOLU-Medrol 40MG VIAL) 40 mg Q8HRS IV Last administered on 01/21/18at 05:44; Start 01/19/18 at 18:00 Aspirin (Brooks Aspirin) 325 mg DAILY PO ; Start 01/21/18 at 09:00 Carvedilol (Coreg) 25 mg BIDWMEALS PO Last administered on 01/21/18at 08:10; Start 01/20/18 at 17:00 Linezolid (Zyvox) 600 mg Q12H PO Last administered on 01/21/18at 05:43; Start 01/20/18 at 17:00 Albuterol Sulfate (Ventolin) 2.5 mg PRN Q4HRS PRN NEB WHEEZING; Start 01/20/18 at 20:00 Active Scripts Active Reported Novolog Flexpen (Insulin Aspart) 100 Unit/1 Ml Insuln.pen 1 Unit SQ Coreg (Carvedilol) 25 Mg Tablet 1 Tab PO BID Systane Ultra 0.4-0.3% Eye Drp (Propylene Glycol/Peg 400) 10 Ml Drops 1 Drop EACHEYE BID Kistler Thyroid (Thyroid,Pork) 60 Mg Tablet 1 Tab PO DAILY Albuterol Sulfate Conc Neb Soln (Albuterol Sulfate) 2.5 Mg/0.5 Ml Vial.neb 1 Vial NEB PRN TID PRN Tylenol (Acetaminophen) 325 Mg Tablet 1 Tab PO PRN TID Glimepiride 2 Mg Tablet 1 Tab PO DAILY LAST DOSE GIVEN: DATE: TODAY TIME: AM NEXT DOSE DUE: DATE: TOMORROW TIME: AM Furosemide 20 Mg Tablet 1 Tab PO DAILY LAST DOSE GIVEN: DATE: TODAY TIME: AM NEXT DOSE DUE: DATE: TOMORROW TIME: AM Vitamin D2 (Ergocalciferol (Vitamin D2)) 50,000 Unit Capsule 1 Cap PO WEEKLY RESTART ON YOUR REGULAR DAY Aspirin 325 Mg Tablet 1 Tab PO DAILY LAST DOSE GIVEN: DATE: TODAY TIME: AM NEXT DOSE DUE: DATE: TOMORROW TIME: AM Polyethylene Glycol 3350 2,500 Gm Powder 2,500 Gm MC PRN DAILY PRN LAST DOSE GIVEN: DATE: TODAY TIME: AM NEXT DOSE DUE: DATE: TOMORROW TIME: AM Vitals/I & O Vital Sign - Last 24 Hours 01/20/18 01/20/18 01/20/18 01/20/18 15:35 15:56 17:48 19:48 Temp 97.8 97.8 Pulse 77 77 78 Resp 18 16 B/P (MAP) 180/90 (120) 180/90 165/79 (107) Pulse Ox 93 95 95 O2 Delivery Room Air Nasal Cannula Nasal Cannula O2 Flow Rate 1.0 2.0 01/20/18 01/20/18 01/20/18 01/21/18 20:00 20:45 23:05 05:10 Pulse 60 Resp 18 B/P (MAP) 132/70 (90) Pulse Ox 92 95 96 O2 Delivery Nasal Cannula Room Air Nasal Cannula Nasal Cannula O2 Flow Rate 1.0 2.0 1.0 01/21/18 01/21/18 01/21/18 01/21/18 05:47 07:49 08:10 10:33 Temp 97.6 Pulse 67 67 Resp 16 B/P (MAP) 153/71 (98) 153/71 Pulse Ox 96 95 O2 Delivery Nasal Cannula Nasal Cannula Nasal Cannula O2 Flow Rate 2.0 1.0 1.0 01/21/18 10:47 Pulse 62 Resp 24 B/P (MAP) 139/76 (97) Pulse Ox 100 O2 Delivery Nasal Cannula O2 Flow Rate 1.0 Intake and Output 01/20/18 01/20/18 01/21/18 15:00 23:00 07:00 Intake Total 2251 ml 360 ml 1017.32 ml Output Total 400 ml Balance 2251 ml -40 ml 1017.32 ml HI SILVERIO PBX INSPECTOR January 21, 2018 11:49
[2018-01-21 14:51] VITALS: BP 128/69
[2018-01-21] MEDS ORDERED: AMOX1TAB58 PO (15:16)
--- NOTE | 2018-01-21 22:37 | DS ---
DATE OF DISCHARGE: 01/21/2018 HISTORY OF PRESENT ILLNESS: This is an 87-year-old -[place] female patient, who was admitted with altered mental status that started on the day of admission. She was accompanied by her grandson who said that she has been coughing more over the weekend. She was discharged from the hospital approximately 2 weeks ago after being treated for congestive heart failure. He noted also significant increase in swelling of his left lower extremity over the past several days as well as occasional shortness of breath. She also noted that she has cough that is worse after eating. It is difficult to get her to eat and her shortness of breath is worse with activity and improved with rest, and according to her son, her shortness of breath is worse when she is lying flat. The patient herself is severely demented; however, she was extensively investigated. Her lab work showed that she has elevated troponin. Her chest x-ray showed that she has also right lower lobe infiltrate and we basically treated her for pneumonia and she seemed to be also somewhat dehydrated, so we will start her on IV fluids. She has had an echocardiogram which showed that she has systolic function is mildly impaired with an ejection fraction of 40-45%. She has had global hypokinesis, right ventricle, severe concentric hypertrophy, probably related to hypertension, hypertensive heart disease. She has a pacemaker leads in the right ventricle. She was also found to have moderate tricuspid regurgitation, moderate pulmonary hypertension, pulmonary artery systolic pressure is 60 mmHg. As she goes to this daycare, who treated her with healthcare-associated pneumonia with both Zyvox and piperacillin, ____ to her kidney function and she actually did very well. She was initially extremely wheezy, tachypneic, marked chest tightness and hypoxia. In fact, she was even initially unresponsive; however, her level of consciousness improved. She has been up and about walking with standby assist. PHYSICAL EXAMINATION: GENERAL: When I saw her this afternoon, she was resting slightly propped up in her recliner in no apparent respiratory distress, slightly pale, but no jaundice, cyanosis or thyromegaly. No jugular venous distension. No lower limb edema. VITAL SIGNS: Her heart rate was 64, blood pressure 128/69, temperature was 98, respiratory rate was 24 and oxygen saturation was 100% on 1 liter of oxygen. HEAD, EYES, EARS, NOSE AND THROAT: Showed normocephalic, atraumatic. NECK: Supple. HEART: Showed normal first and second heart sounds with no gallop, rub or murmur. CHEST: Shows central trachea, equal bilateral expansion, air entry, vesicular sounds. I could not really appreciate any crepitation or rhonchi. ABDOMEN: Slightly distended, soft, nontender. NEUROLOGIC: She is demented, but without any obvious lateralizing sign. All her cranial nerves intact. She moves extremities without difficulty. She ambulates with standby assist. Her intake over the last 24 hours was 2300, output was 400. LABORATORY DATA: Her lab work as of this morning showed serum sodium of 142, potassium 3.9, chloride 108, bicarbonate 26, anion gap of 8, BUN 54, creatinine 2.2. Estimated GFR was 25 mL per minute. Her blood sugar was 133 mg/dL and calcium was 8.2. DISCHARGE MEDICATIONS: She will be discharged home to continue amoxicillin, potassium, clavulanic acid 500/125 one tablet twice a day for 7 days, Tylenol 650 mg 3 times a day, albuterol sulfate 2.5 mg 3 times a day, aspirin 325 mg once a day, carvedilol 25 mg twice a day, ergocalciferol, vitamin D 50,000 units once a week, furosemide 20 mg once a day, glimepiride 2 mg once a day, she is on polyethylene glycol 17 grams as needed and propylene glycol for Systane Ultra 1 drop to both eyes twice a day, Sundance Thyroid 60 mg once a day. FINAL DISCHARGE DIAGNOSES: 1. Right lower lobe infiltrate. 2. Altered mental status. 3. Questionable aspiration pneumonia. The patient was seen by the speech therapist and she recommended dysphagia 1 diet with thin liquid versus ____. Other medical problems include type 2 diabetes, hypertension, vitamin D deficiency and chronic obstructive pulmonary disease. SERGE HORNE MD DR: TAYLOR/ugo JOB#: [id number] / [id number]
== END 2018-01-21 16:35 | disposition home or self-care (01) | DRG 177 ==
LOC: ER 08:57 → 1 SOUTH 12:36
PROVIDERS: ADMIT Internal Medicine; ATTEND Internal Medicine
DX: J69.0 Pneumonitis due to inhalation of food and vomit (principal); I21.4 Non-ST elevation (NSTEMI) myocardial infarction; I50.23 Acute on chronic systolic (congestive) heart failure; N18.4 Chronic kidney disease, stage 4 (severe); N17.9 Acute kidney failure, unspecified; I08.1 Rheumatic disorders of both mitral and tricuspid valves; E11.22 Type 2 diabetes mellitus with diabetic chronic kidney disease; E11.51 Type 2 diabetes mellitus with diabetic peripheral angiopathy without gangrene; I13.0 Hypertensive heart and chronic kidney disease with heart failure and stage 1 through stage 4 chronic kidney disease, or unspecified chronic kidney disease; E03.9 Hypothyroidism, unspecified; E86.0 Dehydration; F03.90 Unspecified dementia, unspecified severity, without behavioral disturbance, psychotic disturbance, mood disturbance, and anxiety; I25.10 Atherosclerotic heart disease of native coronary artery without angina pectoris; I27.20 Pulmonary hypertension, unspecified; J44.9 Chronic obstructive pulmonary disease, unspecified; R09.02 Hypoxemia; R13.10 Dysphagia, unspecified; E55.9 Vitamin D deficiency, unspecified; Y95 Nosocomial condition; I25.2 Old myocardial infarction; Z95.0 Presence of cardiac pacemaker
CPT/HCPCS: 36415; 51702; 70450; 71045; 71250; 80048; 80053; 81001; 82947; 83605; 83735; 83880; 84484; 85025; 85027; 87040; 87086; 92526; 93005; 93306; 94640; 96374; 96375; J0696; J1815; J1940; J2020; J2543; J2920; J7613; J7620; 92610; 97110; 97116; 97530; 97535; 99285-25; J7030

== ENCOUNTER 2018-02-08 21:29 | Emergency (ER) | payer OTHER ==
[~2018-02-08] VITALS: Ht 152.4 cm; Wt 82.6 kg
[~2018-02-08 21:29] MED LIST changes: +ACET325T9 PO; +ALBU2.5V14 NEB; +AMOX1TAB58 PO; +CARV25TA PO; +INSU100I17 SQ; +PROP10DR3 EACHEYE; +THYR60TA PO
--- NOTE | 2018-02-08 22:21 | RAD ---
CT scan of the head without contrast 02/08/2018 Clinical History: Left-sided facial drooping and unresponsiveness. Technique: Unenhanced, contiguous, 5 mm axial sections were obtained through the head. One or more of the following individualized dose reduction techniques were utilized for this study: 1. Automated exposure control. 2. Adjustment of the mA and/or kV according to patient size. 3. Use of iterative reconstruction technique. Findings: Comparison study is dated 01/17/2018. There is generalized parenchymal atrophy. Areas of decreased attenuation are seen within the periventricular and subcortical white matter of both cerebral hemispheres consistent with areas of extensive small vessel ischemic disease. An area encephalomalacia is seen involving the right occipital lobe. No acute parenchymal abnormality is seen. No extra-axial fluid collection is noted. No skull fracture is seen. Impression: No acute intracranial abnormality is seen. This result was called to Dr. Gary at 2216 hours. Electronically signed by: Chun Watkins MD (02/08/2018 10:18 PM) [facility]
--- NOTE | 2018-02-08 22:38 | PHYS DOC ---
Past History Past Medical History: CHF, Dementia, Diabetes, Hypertension Past Surgical History: Pacemaker, Other Smoking: Non-smoker Alcohol Use: None Drug Use: None Adult General Chief Complaint Chief Complaint: ALTERED MENTAL STATUS HPI HPI Patient is a 87 year old female who presents to the emergency department for evaluation of altered mental status. Patient has noted history of dementia. Patient was last seen at her baseline mental status this morning greater than 8 hours prior to arrival in the emergency department. Family stated that the patient was found at 1800 to be in a decreased level of consciousness. Blood sugar was taken at that time and found to be in the 250s. The patient was administered 2 units of an unknown medication, presumably insulin, to help correct her blood sugar. This did not help correct the patient's mental status, thus the family called EMS to have patient brought to the emergency department. On arrival the patient does not provide any history and is oriented only to person at this time. Per chart review patient has history of diabetes mellitus and has had history of prior right occipital infarct. Patient has not been reported to be febrile or have cough. Review of Systems Review of Systems Unable to obtain from patient due to profound altered mental status and history of dementia All other systems were reviewed and found to be within normal limits, except as documented in this note. Allergies Allergies Allergies Coded Allergies Type Severity Reaction Last Updated Verified No Known Drug Allergies 11/24/17 No Physical Exam Physical Exam Constitutional: Lethargic, afebrile, responsive voice. [] HENT: Normocephalic, atraumatic, bilateral external ears normal, oropharynx moist, no oral exudates, nose normal. [] Eyes: PERRLA, EOMI, conjunctiva normal, no discharge. [] Neck: Normal range of motion, no tenderness, supple, no stridor. [] Cardiovascular:Heart rate regular rhythm, no murmur [] Lungs & Thorax: Bilateral breath sounds clear to auscultation [] Abdomen: Bowel sounds normal, soft, no tenderness, no masses, no pulsatile masses. [] Skin: Warm, dry, no erythema, no rash. [] Back: No tenderness, no CVA tenderness. [] Extremities: No tenderness, no cyanosis, no clubbing, ROM intact, no edema. [] Neurologic: Lethargic, oriented to self only, follows commands, symmetric 4 out of 5 motor strength in bilateral upper and lower extremities. [] Current Patient Data Vital Signs Vital Signs Date Time Temp Pulse Resp B/P (MAP) Pulse Ox O2 Delivery O2 Flow Rate FiO2 02/08/18 21:53 97.8 80 18 95 Room Air Lab Results Laboratory Tests Test 02/08/18 21:48 02/08/18 22:10 02/08/18 22:15 White Blood Count 3.2 x10^3/uL Red Blood Count 3.99 x10^6/uL Hemoglobin 11.0 g/dL Hematocrit 33.9 % Mean Corpuscular Volume 85 fL Mean Corpuscular Hemoglobin 28 pg Mean Corpuscular Hemoglobin Concent 32 g/dL Red Cell Distribution Width 19.2 % Platelet Count 209 x10^3/uL Neutrophils (%) (Auto) 52 % Lymphocytes (%) (Auto) 32 % Monocytes (%) (Auto) 13 % Eosinophils (%) (Auto) 2 % Basophils (%) (Auto) 1 % Neutrophils # (Auto) 1.6 x10^3uL Lymphocytes # (Auto) 1.0 x10^3/uL Monocytes # (Auto) 0.4 x10^3/uL Eosinophils # (Auto) 0.1 x10^3/uL Basophils # (Auto) 0.0 x10^3/uL Sodium Level 137 mmol/L Potassium Level 4.9 mmol/L Chloride Level 103 mmol/L Carbon Dioxide Level 25 mmol/L Anion Gap 9 Blood Urea Nitrogen 26 mg/dL Creatinine 1.7 mg/dL Estimated GFR (Cockcroft-Gault) 34.4 BUN/Creatinine Ratio 15 Glucose Level 247 mg/dL Lactic Acid Level 2.9 mmol/L Calcium Level 8.0 mg/dL Magnesium Level 1.9 mg/dL Total Bilirubin 0.4 mg/dL Aspartate Amino Transf (AST/SGOT) 29 U/L Alanine Aminotransferase (ALT/SGPT) 23 U/L Alkaline Phosphatase 116 U/L Creatine Kinase 96 U/L Creatine Kinase MB (Mass) 2.1 ng/mL Creatine Kinase MB Relative Index 2.2 % Troponin I Quantitative 0.126 ng/mL Total Protein 5.2 g/dL Albumin 2.3 g/dL Albumin/Globulin Ratio 0.8 Stool Occult Blood Negative Urine Collection Type U cath Urine Color Yellow Urine Clarity Clear Urine pH 5.5 Urine Specific [place] 1.025 Urine Protein >100 mg/dl Urine Glucose (UA) Neg mg/dL Urine Ketones (Stick) Neg mg/dL Urine Blood Mod Urine Nitrite Neg Urine Bilirubin Neg Urine Urobilinogen Dipstick 1 mg/dL Urine Leukocyte Esterase Neg Urine RBC 3-5 /HPF Urine WBC 1-4 /HPF Urine Squamous Epithelial Cells Occ /LPF Urine Amorphous Sediment Present /HPF Urine Bacteria 0 /HPF Urine Hyaline Casts Mod /HPF Urine Mucus Slight /LPF Current Medications Medications (Trade) Dose Ordered Sig/Clarence Route PRN Reason Start Time Stop Time Status Last Admin Dose Admin Naloxone HCl (Narcan) 2 mg 1X ONCE IV 02/08/18 22:45 02/08/18 22:46 DC 02/08/18 22:47 EKG EKG Interpreted by me: Heart 65, ventricularly paced rhythm, no acute ST elevations or depressions[] Radiology/Procedures Radiology/Procedures [address] [address] IMAGING REPORT Signed PATIENT: ILEANA MERRILL ACCOUNT: [id number] : 1930 LOCATION: ER AGE: 87 SEX: F EXAM STATUS: REG ER ORD. PHYSICIAN: ANGELIA ANDRADE MD REASON: FACIAL DROOP PROCEDURE: CT CODE STROKE HEAD WO CT scan of the head without contrast 02/08/2018 Clinical History: Left-sided facial drooping and unresponsiveness. Technique: Unenhanced, contiguous, 5 mm axial sections were obtained through the head. One or more of the following individualized dose reduction techniques were utilized for this study: 1. Automated exposure control. 2. Adjustment of the mA and/or kV according to patient size. 3. Use of iterative reconstruction technique. Findings: Comparison study is dated 01/17/2018. There is generalized parenchymal atrophy. Areas of decreased attenuation are seen within the periventricular and subcortical white matter of both cerebral hemispheres consistent with areas of extensive small vessel ischemic disease. An area encephalomalacia is seen involving the right occipital lobe. No acute parenchymal abnormality is seen. No extra-axial fluid collection is noted. No skull fracture is seen. Impression: No acute intracranial abnormality is seen. This result was called to Dr. Andrade at 2216 hours. Electronically signed by: Chun Watkins MD (02/08/2018 10:18 PM) [facility] DICTATED AND SIGNED BY: CHUN WATKINS MD DATE: 02/08/182206 CC: ANGELIA ANDRADE MD; JAS DOAN DO ~ One view AP chest x-ray interpreted by me: Right lower lobe pleural effusion, pulmonary infiltrates in the right lower lobe slightly decreased from previous study, cardiomegaly present[] Course & Med Decision Making Course & Med Decision Making Pertinent Labs and Imaging studies reviewed. (See chart for details) The patient was trialed on Narcan initially with no significant improvement in mental status. CT head was negative for any acute findings. The patient's lab work shows chronically abnormal kidney function and an elevated troponin that appears to be somewhat stable compared to previous readings. The patient's grandson who is the patient's DPOA was informed of all of these results. I explained the concern over the patient's continued elevated troponin and abnormal chest x-ray findings. The patient also required supplemental oxygen at due to decrease to the upper 80s. Further evaluation of this shows that the patient is undergoing likely sleep apnea cannot ask as the patient's auction levels to increase back to 95% after bottoming out in the upper 80s. I recommended due to the presence of the findings that the patient could benefit from admission to the hospital for further treatment and evaluation. I also explained that the patient displays no clear-cut etiology for the cause of her sudden change in mental status. Patient's grandson states that the patient has had multiple admissions over the past few months and has had significant testing done which has not caused a significant change in the patient's treatment. He also states that after consultation with the patient's primary doctor he is hesitant to have the patient admitted for any further stays unless absolutely warranted. I did explain that the patient's condition has the potential to worsen and could result in worsening of the condition or possibly . I explained that this could even happen within the next 1-2 days. He states that the patient is DNR/DNI and that if the patient were to that she would prefer to in the confines of her own home as opposed to hospital. He does not want the patient to be admitted. He would like the patient to go home at this time. Given that the grandson is the patient's DPOA and voices understanding of the potential risks of outpatient treatment, I will respect the wishes of the patient's grandson and discharge the patient from the emergency department. Advise follow-up tomorrow with patient's primary doctor for reevaluation and recommended return emergency department for any worsening symptoms. Dragon Disclaimer Dragon Disclaimer This electronic medical record was generated, in whole or in part, using a voice recognition dictation system. Departure Departure: Impression: Primary Impression: Altered mental status Additional Impressions: Congestive heart failure Stage III chronic kidney disease Elevated troponin level Dementia Diabetes mellitus Disposition: 01 HOME, SELF-CARE Condition: STABLE Referrals: JAS DOAN DO (PCP) Patient Instructions: Altered Mental Status Additional Instructions: Your grandmother's test this showed abnormalities of her heart function and difficulty with maintaining normal oxygen levels. The tests also did not show an obvious cause for your grandmother's change in mental status. This has been explained to you and you have elected to have your grandmother discharged home. This could result and potential worsening of your grandmother's condition and may result in . It is recommended that you follow-up with your grandmother' s primary doctor tomorrow for reevaluation. Please return to the emergency department for any worsening symptoms. Problem Qualifiers Primary Impression: Altered mental status Altered mental status type: unspecified Qualified Codes: R41.82 - Altered mental status, unspecified Additional Impressions: Congestive heart failure Heart failure type: unspecified Heart failure chronicity: unspecified Qualified Codes: I50.9 - Heart failure, unspecified Dementia Dementia type: unspecified type Dementia behavioral disturbance: with behavioral disturbance Qualified Codes: F03.91 - Unspecified dementia with behavioral disturbance Diabetes mellitus Diabetes mellitus type: type 2 Diabetes mellitus intermodal customer service insulin use: with intermodal customer service use Diabetes mellitus complication status: with hyperglycemia Qualified Codes: E11.65 - Type 2 diabetes mellitus with hyperglycemia; Z79.4 - termination clerk (current) use of insulin ANGELIA ANDRADE MD February 08, 2018 22:38
[2018-02-08 22:39] LABS: BASO % 1 % (0-3); EOS # 0.1 x10^3/uL (0.0-0.7); EOS % 2 % (0-3); HEMATOCRIT 33.9 % (36.0-47.0); LYMPH % 32 % (24-48); MEAN CORPUSCULAR HEMOGLOBIN 28 pg (25-35); MEAN CORPUSCULAR HGB CONC 32 g/dL (31-37); MEAN CORPUSCULAR VOLUME 85 fL (79-100); MONO # 0.4 x10^3/uL (0.0-1.1); MONO % 13 % (0-9); NEUT # 1.6 x10^3uL (1.8-7.7); NEUT % 52 % (31-73); PLATELET COUNT 209 x10^3/uL (140-400); RED BLOOD COUNT 3.99 x10^6/uL (3.50-5.40); RED CELL DISTRIBUTION WIDTH 19.2 % (11.5-14.5); WHITE BLOOD COUNT 3.2 x10^3/uL (4.0-11.0)
[2018-02-08 22:45] LABS: BILIRUBIN,URINE NEG (NEG); CLARITY,URINE CLEAR; COLOR,URINE YELLOW; GLUCOSE,URINE NEG (NEG)
[2018-02-08] MEDS ORDERED: NALOXONE 2 MG/2 ML DISP.SYRIN. IV ONE (22:45)
[2018-02-08 22:46] LABS: AMORPHOUS SEDIMENT,UR PRESENT /HPF; BACTERIA,URINE 0 /HPF (0-FEW); HYALINE CASTS, URINE MOD /HPF; NITRITE,URINE NEG (NEG); SQUAMOUS EPITHELIAL CELL,UR OCC /LPF; UROBILINOGEN,URINE 1 mg/dL (0.2 mg/dL)
[2018-02-08 22:49] LABS: FECAL OB PT NEGATIVE (NEG)
[2018-02-08 22:55] LABS: ALBUMIN 2.3 g/dL (3.4-5.0); ALBUMIN/GLOBULIN RATIO 0.8 (1.0-1.7); CREATININE 1.7 mg/dL (0.6-1.0); GFR 34.4; MAGNESIUM 1.9 mg/dL (1.8-2.4); POTASSIUM 4.9 mmol/L (3.5-5.1); TOTAL BILIRUBIN 0.4 mg/dL (0.2-1.0); TOTAL PROTEIN 5.2 g/dL (6.4-8.2)
--- NOTE | 2018-02-08 22:57 | EKG ---
[address] [address] Test Date: 2018-02-08 Test Time: 22:20:32 Pat Name: ILEANA MERRILL Department: Room: Gender: F Computed Tomography Technician: : 1930 Requested By: ANGELIA ANDRADE Order Number: [id number] Reading MD: Measurements Intervals [place] Rate: 65 P: 41 IN: 158 QRS: -82 QRSD: 170 T: 112 QT: 504 QTc: 525 Interpretive Statements SINUS RHYTHM LEFT ATRIAL ABNORMALITY ABNORMAL LEFT AXIS DEVIATION NON SPECIFIC INTRAVENTRICULAR BLOCK QRS(T) CONTOUR ABNORMALITY CONSISTENT WITH ANTEROSEPTAL INFARCT PROBABLY OLD ABNORMAL ECG RI6.01 No previous ECG available for comparison
[2018-02-08 23:55] VITALS: BP 144/79
--- NOTE | 2018-02-09 00:03 | RAD ---
AP portable chest radiograph 02/08/2018 Clinical History: Unresponsive. An AP erect portable digital radiograph of the chest was obtained. Comparison study is dated 01/19/2018. A pacemaker is unchanged position. The cardiac silhouette is mildly enlarged. The thoracic aorta is tortuous. Atherosclerotic calcification thoracic aorta is seen. There are small bilateral pleural effusions. Improving right lower lobe atelectasis and or infiltrate is noted. No pneumothorax is seen. The osseous structures are unchanged. Impression: Improving right lower lobe atelectasis and or infiltrate. Electronically signed by: Chun Watkins MD (02/09/2018 12:00 AM) [facility]
== END 2018-02-09 00:30 | disposition home or self-care (01) ==
LOC: ER 21:29
DX: R41.82 Altered mental status, unspecified (principal); I13.0 Hypertensive heart and chronic kidney disease with heart failure and stage 1 through stage 4 chronic kidney disease, or unspecified chronic kidney disease; I50.9 Heart failure, unspecified; N18.3 Chronic kidney disease, stage 3 (moderate); E11.22 Type 2 diabetes mellitus with diabetic chronic kidney disease; E11.65 Type 2 diabetes mellitus with hyperglycemia; F03.91 Unspecified dementia, unspecified severity, with behavioral disturbance; Z95.0 Presence of cardiac pacemaker; Z79.4 Long term (current) use of insulin
CPT/HCPCS: 36415; 70450; 71045; 80053; 81001; 82274; 82553; 82947; 83605; 83735; 84484; 85025; 93005; 96374; 99285; J2310

== ENCOUNTER 2018-07-01 09:19 | Emergency (ER) | payer OTHER ==
[~2018-07-01 09:19] MED LIST changes: -LOSA100T6 PO; +LOSA100T7 PO
[2018-07-01 09:20] VITALS: BP 144/79
--- NOTE | 2018-07-01 09:57 | RAD ---
Portable chest, 07/01/2018: HISTORY: CODE BLUE Comparison is made to a study from 02/08/2018. The ET tube tip extends into the proximal right main bronchus. 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 The heart is at the upper limits of normal in size. There is calcific plaquing the aorta. There are mild right perihilar opacities with loss of vascular margination dictation suggesting mild perihilar-perivascular pulmonary edema. Blunting of the right lateral costophrenic angle may be due to scarring or a small amount of pleural fluid. No pneumothorax is seen. IMPRESSION: 1. Malposition of the ET tube which extends into the proximal right main bronchus. 2. Mild parahilar-perivascular pulmonary edema. Note: The findings were called to personnel in the [facility] ER at 9:54 AM on 07/01/2018. Electronically signed by: Kirk Turner MD (07/01/2018 9:54 AM) [facility]
--- NOTE | 2018-07-01 10:30 | PHYS DOC ---
Past History Past Medical History: CHF, Dementia, Diabetes, Hypertension Past Surgical History: Pacemaker, Other Smoking: Non-smoker Alcohol Use: None Drug Use: None Adult General Chief Complaint Chief Complaint: CPR/FULL ARREST HPI HPI 88-year-old female presents via EMS with CODE BLUE. The patient was reported to be doing well this morning and was headed to an appointment on a wheelchair van when she began have difficulty breathing and then collapsed. The patient's grandson checked her blood sugar which was in the 190s. He put an oxygen saturation device on her finger and found it to be in the 60s. He then immediately called EMS. The fire department was the first on scene and they started CPR. Family tells me that the patient had been feeling well lately. She had breakfast this morning without any difficulty. She has not been complaining of anything prior to this episode. Review of Systems Review of Systems Unable to Perform due to being unresponsive Constitutional: [] Eyes: [] HENT: [] Respiratory: [] Cardiovascular: [] GI: [] : [] Musculoskeletal: [] Integument: [] Neurologic: [] Endocrine: Allergies Allergies Allergies Coded Allergies Type Severity Reaction Last Updated Verified No Known Drug Allergies 11/24/17 No Physical Exam Physical Exam Constitutional: Well developed, well nourished, Severe distress. Emesis on her face. CPR in progress [] HENT: Normocephalic, atraumatic. [] Eyes: Pupils fixed and dilated. [] Neck: supple. [] Cardiovascular: Asystole with some PEA for short periods [] Lungs & Thorax: Poor air flow with BVM. [] Abdomen: Soft, nondistended. [] Skin: Warm, dry, no erythema, no rash. [] Back: [] Extremities: No cyanosis, no clubbing.[] Neurologic: Pupils fixed and dilated, no response to pain, unresponsive[] Psychologic: [] EKG EKG [] Radiology/Procedures Radiology/Procedures [] Impressions: No focal infiltrate, ET tube in the right bronchus. Course & Med Decision Making Course & Med Decision Making Pertinent Labs and Imaging studies reviewed. (See chart for details) Fire department was first on the scene and they continued CPR. When EMS arrived they stated the patient appeared to be in V. fib. They shocked her once and from that point on they had asystole. They continued CPR and did a total of 6 rounds of epinephrine. They attempted intubation but were unable to intubate her. An opiate was placed and they continued [id number] respirations with compressions. On arrival to the ED, the patient was again found to be in asystole with no pulse. I was able to intubate the patient with a size 7.5 ET tube. The patient did have aspiration fluid in her upper airway, from apparent vomiting. She was easy to ventilate after intubation. Chest x-ray did not reveal any useful findings. There were short periods of 4-5 seconds were patient appeared to have an organized rhythm. A chest time that we get a rhythm check, no pulse was found. We did a total of 4 rounds of epinephrine in this emergency room. We worked on the patient for greater than 25 minutes with no change in her condition. Her downtime was greater than 45 minutes. She was pronounced at 0932. I personally spoke with the patient's grandson in the emergency room for family notification. I was available to answer any of his questions. Greater than 35 minutes of peripheral care time was spent on this patient. This is separate from any other billable procedures. [] Dragon Disclaimer Dragon Disclaimer This electronic medical record was generated, in whole or in part, using a voice recognition dictation system. Intubation Procedure Intub Indication: [CODE BLUE] Consent: [Presumed] Medications Used: [None] Procedure: The patient was placed flat on the gurney.. Cricoid pressure was not needed []. Intubation was performed by myself. There was significant aspiration fluid and patient's airway that I removed with suction. I was able to have direct visualization of the vocal cords and passed the tube without difficulty and a single attempt. Endotracheal tube size 7.5, 23 at the lip.]. Initial confirmation of placement included color change. A chest x-ray to verify correct placement of the tube was performed and it was into the right bronchus. This was not corrected as the patient prior to visualization of the chest x-ray. The patient is unresponsive. Complications: Aspiration fluid, slightly deep intubation Departure Departure: Referrals: JAS DOAN DO (PCP) DEREK CAMACHO DO Jul 01, 2018 10:30
[2018-07-01] MEDS ORDERED: EPINEPHrine SYRINGE 1 MG/10 ML SYRINGE ONE (12:00)
== END 2018-07-01 13:29 | disposition expired ==
LOC: ER 09:19
DX: I46.9 Cardiac arrest, cause unspecified (principal); E11.9 Type 2 diabetes mellitus without complications; I11.0 Hypertensive heart disease with heart failure; I50.9 Heart failure, unspecified; F03.91 Unspecified dementia, unspecified severity, with behavioral disturbance; Z95.0 Presence of cardiac pacemaker
CPT/HCPCS: 31500; 71045; 92950; 99285; J0171